=== PATIENT | male | born 1965 | race Hispanic/Latino ===

== ENCOUNTER 2016-10-08 09:48 | Inpatient (IN) | payer BC ==
[2016-10-08 09:59] VITALS: BMI 39.4
[2016-10-08] MEDS ORDERED: Iohexol 240 (50 ml) ONE (10:18)
[2016-10-08] MEDS: Sodium Chloride 0.9% 1,000 ML IV SCH (10:56)
--- NOTE | 2016-10-08 11:01 | ED PDOC ---
Arrival/HPI - General Historian: Patient - General Chief Complaint: Medical Clearance Time Seen by Provider: 10/08/16 10:10 - Critical Care Narrative Critical Care (Text): 10/08/16 10:31 51 year old male with recently diagnosed colon cancer was sent to [facility] by Dr. Fields for an abnormal PET scan. Patient is schedule to have colon resection surgery on with Dr. Collins. Patient's PET report states fluid collection in the sigmoid colon and phlegmonous or fistula tract suspicious for colovesical fistula. Patient has no current complains. He denies having abnormal bowel movements or blood per rectum. He further denies headache , fatigue, fever, chills, shortness of breath, nausea, vomiting, abdominal pain , or urinary symptoms. (Rula Bowles) Past Medical History - Provider Review Nursing Documentation Reviewed: Yes - Infectious Disease Hx of Infectious Diseases: None - Psychiatric Hx Substance Use: No - Surgical History Other/Comment: umbilical surgery - Anesthesia Hx Anesthesia: Yes Hx Anesthesia Reactions: No Family/Social History - Physician Review Nursing Documentation Reviewed: Yes Family/Social History: Unknown Family HX Smoking Status: Never Smoked Hx Alcohol Use: No Hx Substance Use: No Allergies/Home Meds Allergies/Adverse Reactions: Allergies tree nut Allergy (Verified 10/08/16 09:59) ANAPHYLAXIS Home Medications: Home Meds Medication Instructions Recorded Confirmed No Known Home Med 10/08/16 10/08/16 Review of Systems - Physician Review All systems were reviewed & negative as marked: Yes - Review of Systems Constitutional: Normal. absent: Fatigue, Fevers Eyes: Normal ENT: Normal. absent: Voice Changes Respiratory: Normal. absent: SOB, Cough Cardiovascular: Normal. absent: Chest Pain, Syncope Gastrointestinal: Normal. absent: Abdominal Pain, Stool Changes, Diarrhea, Nausea, Vomiting Musculoskeletal: Normal. absent: Back Pain Skin: Normal. absent: Rash, Skin Lesions Neurological: Normal. absent: Headache, Dizziness Endocrine: Normal. absent: Diaphoresis, Polyuria Hemo/Lymphatic: Normal Psychiatric: Normal. absent: Anxiety, Depression Physical Exam Vital Signs Reviewed: Yes Temperature: Afebrile Blood Pressure: Hypertensive Pulse: Regular Respiratory Rate: Normal Appearance: Positive for: Well-Appearing, Non-Toxic, Comfortable Pain Distress: None Mental Status: Positive for: Alert and Oriented X 3. No: Confused, Agitated - Systems Exam Head: Present: Atraumatic, Normocephalic Pupils: Present: PERRL Extroacular Muscles: Present: EOMI Conjunctiva: Present: Normal. No: Injected Ears: Present: Normal Mouth: Present: Moist Mucous Membranes Pharnyx: Present: Normal. No: ERYTHEMA Respiratory/Chest: Present: Clear to Auscultation, Good Air Exchange. No: Respiratory Distress, Accessory Muscle Use Cardiovascular: Present: Regular Rate and Rhythm, Normal S1, S2. No: Murmurs Abdomen: Present: Normal Bowel Sounds. No: Tenderness, Distention, Peritoneal Signs, Guarding, McBurney's Point Tender, Hernias Upper Extremity: Present: Normal Inspection, NORMAL PULSES Lower Extremity: Present: NORMAL PULSES, Neurovascularly Intact, Other ( multiple skin tags located at left inner thigh). No: Edema, Swelling Neurological: Present: GCS=15, CN II-XII Intact, Speech Normal Skin: Present: Warm, Dry, Normal Color. No: Rashes Psychiatric: Present: Alert, Oriented x 3, Normal Insight, Normal Concentration Medical Decision Making Re-evaluation Time: 13:30 Reassessment Condition: Unchanged ED Course and Treatment: 10/08/16 11:07 -CT abd and pelvis -EKG -IVF -CBC, CMP -PT/PTT -Type and screen DDx: colovesicular fistula, diverticulitis 10/08/16 12:10 residential leasing manager evaluated the patient. 10/08/16 13:25 ED attending discussed case with Dr. Marc Erickson, agreed with med/surg admission (Rula Bowles) Patient Seen With Resident: In agreement with resident note. Patient was seen and evaluated with resident, came up with plan and treatment together. (Massimo Cohen DO) - Lab Interpretations Lab Results: 10/08/16 10:41 10/08/16 10:41 Lab Results 10/08/16 11:53: Blood Type Confirm A NEGATIVE 10/08/16 11:23: Blood Type A NEGATIVE, Antibody Screen Positive, Antibody Identification Pending, BBK History Checked No verified bt 10/08/16 10:41: Sodium 140, Potassium 4.5, Chloride 105, Carbon Dioxide 23, Anion Gap 17, BUN 9, Creatinine 0.8, Est GFR ( Amer) > 60, Est GFR (Non- Af Amer) > 60, Random Glucose 96, Calcium 9.8, Total Bilirubin 0.7, AST 37, ALT 40, Alkaline Phosphatase 68, Total Protein 8.9 H, Albumin 4.6, Globulin 4.3, Albumin/Globulin Ratio 1.1 10/08/16 10:41: PT 11.1, INR 1.03, APTT 28.2 10/08/16 10:41: WBC 8.7, RBC 5.42, Hgb 13.1 L, Hct 40.8 L, MCV 75.3 L, MCH 24.2 L, MCHC 32.1, RDW 15.5 H, Plt Count 465 H, MPV 9.4, Gran % 60.6, Lymph % (Auto) 27.6, [place] % (Auto) 7.2 H, Eos % (Auto) 4.0, Baso % (Auto) 0.6, Gran # 5.28, Lymph # 2.4, [place] # 0.6, Eos # 0.4, Baso # 0.05 - RAD Interpretation Narrative RAD Interpretations (Text): 10/08/16 13:22 PROCEDURE: CT Abdomen and Pelvis with contrast HISTORY: h/o colon CA COMPARISON: None. TECHNIQUE: Contrast dose: 100 cc of Omni 350 Radiation dose: Total exam DLP = 1251 mGy-cm. This CT exam was performed using one or more of the following dose reduction techniques: Automated exposure control, adjustment of the mA and/or kV according to patient size, and/or use of iterative reconstruction technique. FINDINGS: LOWER THORAX: Unremarkable. LIVER: Unremarkable. No gross lesion or ductal dilatation. GALLBLADDER AND BILE DUCTS: Unremarkable. PANCREAS: Unremarkable. No gross lesion or ductal dilatation. SPLEEN: Unremarkable. ADRENALS: Unremarkable. No mass. KIDNEYS AND URETERS: Unremarkable. No hydronephrosis. No solid mass. VASCULATURE: Unremarkable. No aortic aneurysm. BOWEL: There is a mass in the sigmoid colon that infiltrates the adjacent mesenteric fat. There is also invasion of the bladder wall superiorly and on the left side. APPENDIX: Normal appendix. PERITONEUM: Unremarkable. No free fluid. No free air. LYMPH NODES: There is mild enlargement of mesenteric lymph nodes adjacent to the mass. BLADDER: Unremarkable. REPRODUCTIVE: Unremarkable. BONES: No acute fracture. OTHER FINDINGS: None. IMPRESSION: There is a mass in the sigmoid colon that infiltrates the adjacent mesenteric fat and invades the bladder. No evidence of metastatic disease to the liver. (Rula Bowles) Radiology Orders: 10/08/16 10:14 ABD PELVIS PO & IV CONTRAST [CT] Stat - EKG Interpretation EKG Interpretation (Text): 10/08/16 11:06 NSR at 87bpm, no acute ST changes, read by me (Rula Bowles) - Medication Orders Current Medication Orders: Sodium Chloride (Sodium Chloride 0.9%) 1,000 mls @ 100 mls/hr IV .Q10H [facility] Last Admin: 10/08/16 10:56 Dose: 100 mls/hr Discontinued Medications Iohexol (Omnipaque 240 (50 Ml)) Confirm Administered Dose 50 ml .ROUTE .STK-MED ONE Stop: 10/08/16 10:19 Iohexol (Omnipaque 350 100 Ml) Confirm Administered Dose 350 mg .ROUTE .STK-MED ONE Stop: 10/08/16 11:20 Disposition/Present on Arrival - Present on Arrival Any Indicators Present on Arrival: No History of DVT/PE: No History of Uncontrolled Diabetes: No Urinary Catheter: No History of Decub. Ulcer: No History Surgical Site Infection Following: None - Disposition Have Diagnosis and Disposition been Completed?: Yes Disposition Time: 13:42 Patient Plan: Admission (med/surg) - Disposition Diagnosis: Colon cancer Disposition: HOSPITALIZED Patient Problems: Current Active Problems Problem Status Onset Colon cancer Acute Condition: STABLE Referrals: Dre GOODEN,Romaine Cho MD [Primary Care Provider] - Follow up with primary
[2016-10-08 11:08] LABS: ALB/GLOB RATIO 1.1 (1.1-1.8); ALBUMIN 4.6 g/dL (3.0-4.8); ALT/SGPT 40 U/L (7-56); AST/SGOT 37 U/L (15-59); BLOOD UREA NITROGEN 9 mg/dL (7-21); CALCIUM 9.8 mg/dL (8.4-10.5); GFR AFRICAN-AMERICAN > 60; GFR NON-AFRICAN AMERICAN > 60
[2016-10-08 11:12] LABS: BASO # 0.05 K/mm3 (0.0-2.0); BASO % 0.6 % (0.0-3.0); EOS # 0.4 (0.0-0.7); GRAN # 5.28 (1.4-6.5); GRAN % 60.6 % (50.0-68.0); HEMOGLOBIN 13.1 gm/dL (14.0-18.0); LYMPH # 2.4 (1.2-3.4); LYMPH % 27.6 % (22.0-35.0); MEAN CELL VOLUME 75.3 fL (80.0-105.0); MEAN CORPUSCULAR HEMOGLOBIN 24.2 pg (25.0-35.0); MEAN CORPUSCULAR HGB CONC 32.1 g/dl (31.0-37.0); MEAN PLATELET VOLUME 9.4 fl (7.0-11.0); MONO # 0.6 (0.1-0.6); MONO % 7.2 % (1.0-6.0); PLATELET COUNT 465 10^3/uL (120.0-450.0); RBC 5.42 10^6/uL (3.5-6.1); RED CELL DISTRIBUTION WIDTH 15.5 % (11.5-14.5); WHITE BLOOD COUNT 8.7 10^3/ul (4.5-11.0)
[2016-10-08 11:17] LABS: INR 1.03 (0.93-1.08); PARTIAL THROMBOPLASTIN TIME 28.2 Seconds (23.7-30.8); PROTHROMBIN TIME 11.1 Seconds (9.9-11.8)
[2016-10-08] MEDS ORDERED: Iohexol 350 MG/100 ML VIAL ONE (11:19)
--- NOTE | 2016-10-08 12:19 | CP.PCM.CON ---
History of Present Illness - History of Present Illness History of Present Illness: General Surgery for Dr. Bernard CC: 51 M presents to the ED for abscess and fistula found on PET scan. HPI: 51 M presents to the ED for abscess and fistula. Surgery was consulted. Patient was seen at bedside. Patient was called by Dr. Brown because the PET scan from last week resulted showing pockets of fluid in posterior sigmoid region. Patient denies feeling any discomfort at the time. The patient was recently treated for UTI with Cipro for 7 days. Treatment ended 10/05/16. Patient is not experiencing dysuria at this time. Patient denies any changes in BM. Patient admits to eating soft foods due to recently diagnosed sigmoid cancer found on colonoscopy on 08/24/16. Patient denies F/C, N/V, C/D, melena, pneumaturia, hematuria, fecaluria. PMH: Sigmoid CA, HTN PSH: umbilical hernia repair 15 years ago FHx: none related to colon cancer. Social Hx: Never smoker, socially drinks EtOH (1-2 beers a weekend), denies illicit drugs. Medications: reviewed in chart. Allergies: NKDA Review of Systems - Review of Systems All systems: reviewed and no additional remarkable complaints except (As per HPI ) - Constitutional Constitutional: As Per HPI. absent: Fatigue, Weight Gain, Weight Loss - EENT Eyes: As Per HPI - Gastrointestinal Gastrointestinal: absent: Abdominal Pain, Change in Bowel Habits, Change in Stool Character, Constipation, Cramping, Diarrhea, Loose Stools, Melena - Genitourinary Genitourinary: absent: Dysuria, Pyuria, Nocturia, Urinary Incontinence, Urinary Frequency, Urinary Hesitance - Neurological Neurological: As Per HPI Past Patient History - Infectious Disease Hx of Infectious Diseases: None - Past Social History Smoking Status: Never Smoked - PSYCHIATRIC Hx Substance Use: No - SURGICAL HISTORY Other/Comment: umbilical surgery - ANESTHESIA Hx Anesthesia: Yes Hx Anesthesia Reactions: No Meds Allergies/Adverse Reactions: Allergies Allergy/AdvReac Type Severity Reaction Status Date / Time tree nut Allergy ANAPHYLAXIS Verified 10/08/16 09:59 - Medications Medications: Current Medications Sodium Chloride (Sodium Chloride 0.9%) 1,000 mls @ 100 mls/hr IV .Q10H [facility] Last Admin: 10/08/16 10:56 Dose: 100 mls/hr Physical Exam - Constitutional Appears: Non-toxic, No Acute Distress - Head Exam Head Exam: NORMAL INSPECTION - Eye Exam Eye Exam: EOMI, Normal appearance, PERRL - ENT Exam ENT Exam: Mucous Membranes Moist - Neck Exam Neck exam: Positive for: Full Rom - Respiratory Exam Respiratory Exam: NORMAL BREATHING PATTERN. absent: Accessory Muscle Use, Respiratory Distress - Cardiovascular Exam Cardiovascular Exam: REGULAR RHYTHM. absent: Bradycardia, Tachycardia - GI/Abdominal Exam GI & Abdominal Exam: Distended, Normal Bowel Sounds, Soft. absent: Firm, Guarding, Hernia, Organomegaly, Pulsatile Mass, Rebound, Rigid, Tenderness - Extremities Exam Extremities exam: Positive for: normal inspection. Negative for: pedal edema, tenderness - Neurological Exam Neurological exam: Alert, Oriented x3 - Psychiatric Exam Psychiatric exam: Normal Affect, Normal Mood - Skin Skin Exam: Dry, Intact, Normal Color, Warm Results - Vital Signs Recent Vital Signs: Last Vital Signs Temp 97.9 F 10/08/16 10:02 Pulse 89 10/08/16 11:43 Resp 18 10/08/16 11:43 BP 175/102 H 10/08/16 11:43 Pulse Ox 99 10/08/16 11:43 - Labs Result Diagrams: 10/08/16 10:41 10/08/16 10:41 Labs: Laboratory Results - last 24 hr 10/08/16 10/08/16 10/08/16 10:41 10:41 10:41 WBC 8.7 RBC 5.42 Hgb 13.1 L Hct 40.8 L MCV 75.3 L MCH 24.2 L MCHC 32.1 RDW 15.5 H Plt Count 465 H MPV 9.4 Gran % 60.6 Lymph % (Auto) 27.6 [place] % (Auto) 7.2 H Eos % (Auto) 4.0 Baso % (Auto) 0.6 Gran # 5.28 Lymph # 2.4 [place] # 0.6 Eos # 0.4 Baso # 0.05 PT 11.1 INR 1.03 APTT 28.2 Sodium 140 Potassium 4.5 Chloride 105 Carbon Dioxide 23 Anion Gap 17 BUN 9 Creatinine 0.8 Est GFR ( Amer) > 60 Est GFR (Non-Af Amer) > 60 Random Glucose 96 Calcium 9.8 Total Bilirubin 0.7 AST 37 ALT 40 Alkaline Phosphatase 68 Total Protein 8.9 H Albumin 4.6 Globulin 4.3 Albumin/Globulin Ratio 1.1 BBK History Checked 10/08/16 11:23 WBC RBC Hgb Hct MCV MCH MCHC RDW Plt Count MPV Gran % Lymph % (Auto) [place] % (Auto) Eos % (Auto) Baso % (Auto) Gran # Lymph # [place] # Eos # Baso # PT INR APTT Sodium Potassium Chloride Carbon Dioxide Anion Gap BUN Creatinine Est GFR ( Amer) Est GFR (Non-Af Amer) Random Glucose Calcium Total Bilirubin AST ALT Alkaline Phosphatase Total Protein Albumin Globulin Albumin/Globulin Ratio BBK History Checked No verified bt Assessment & Plan - Assessment and Plan (Free Text) Assessment: 51 M with sigmoid Ca Plan: Monitor overnight c/w current medical management f/u AM CBC f/u UA monitor BM
--- NOTE | 2016-10-08 13:07 | CT ---
PROCEDURE: CT Abdomen and Pelvis with contrast HISTORY: h/o colon CA COMPARISON: None. TECHNIQUE: Contrast dose: 100 cc of Omni 350 Radiation dose: Total exam DLP = 1251 mGy-cm. This CT exam was performed using one or more of the following dose reduction techniques: Automated exposure control, adjustment of the mA and/or kV according to patient size, and/or use of iterative reconstruction technique. FINDINGS: LOWER THORAX: Unremarkable. LIVER: Unremarkable. No gross lesion or ductal dilatation. GALLBLADDER AND BILE DUCTS: Unremarkable. PANCREAS: Unremarkable. No gross lesion or ductal dilatation. SPLEEN: Unremarkable. ADRENALS: Unremarkable. No mass. KIDNEYS AND URETERS: Unremarkable. No hydronephrosis. No solid mass. VASCULATURE: Unremarkable. No aortic aneurysm. BOWEL: There is a mass in the sigmoid colon that infiltrates the adjacent mesenteric fat. There is also invasion of the bladder wall superiorly and on the left side. APPENDIX: Normal appendix. PERITONEUM: Unremarkable. No free fluid. No free air. LYMPH NODES: There is mild enlargement of mesenteric lymph nodes adjacent to the mass. BLADDER: Unremarkable. REPRODUCTIVE: Unremarkable. BONES: No acute fracture. OTHER FINDINGS: None. IMPRESSION: There is a mass in the sigmoid colon that infiltrates the adjacent mesenteric fat and invades the bladder. No evidence of metastatic disease to the liver.
[2016-10-08] MEDS ORDERED: Piperacillin/Tazobact 3.375 gm 100 ML IVPB STA (14:16)
--- NOTE | 2016-10-08 15:41 | CARD ---
APPROVED REPORT EKG Measurement Heart [id number] <Conclusion> Normal sinus rhythm Normal ECG
[2016-10-08] MEDS ORDERED: Pneumococcal 23-Valent Vaccine IM ONE (15:46)
--- NOTE | 2016-10-08 22:51 | CP.PCM.CON ---
History of Present Illness - History of Present Illness History of Present Illness: Mr. Reyes is a 51 year old male recently diagnosed with colon cancer. Biopsy consistent with adenocarcinoma. He was evaluated in office prior to surgery. CT -PET scan done 3 days ago showed fluid collection with air bubbles posterior to colon concerning for bowel rupture. Fistulus tract between colon and bladder. Multiple PET positive nodes in abdomen and inguinal nodes. No mets in liver. He was advised to go to ER today. Denies abdominal pain. He also has iron deficiency anemia, s/p one dose of IV iron as out patient. Review of Systems - Constitutional Constitutional: As Per HPI - EENT Eyes: absent: As Per HPI, Blind Spots, Blurred Vision, Change in Vision, Decreased Night Vision, Diplopia, Discharge, Dry Eye, Exophthalmos, Floaters, Irritation, Itchy Eyes, Loss of Peripheral Vision, Pain, Photophobia, Requires Corrective Lenses, Sees Flashes, Spots in Vision, Tunnel Vision, Other Visual Disturbances, Loss of Vision, Other Ears: absent: As Per HPI, Decreased Hearing, Ear Discharge, Ear Pain, Tinnitus, Abnormal Hearing, Disequilibrium, Dizziness, Other Nose/Mouth/Throat: absent: As Per HPI, Epistaxis, Nasal Congestion, Nasal Discharge, Nasal Obstruction, Nasal Trauma, Nose Pain, Post Nasal Drip, Sinus Pain, Sinus Pressure, Bleeding Gums, Change in Voice, Dental Pain, Dry Mouth, Dysphagia, Halitosis, Hoarsness, Lip Swelling, Mouth Lesions, Mouth Pain, Odynophagia, Sore Throat, Throat Swelling, Tongue Swelling, Facial Pain, Neck Pain, Neck Mass, Other - Cardiovascular Cardiovascular: absent: As Per HPI, Acrocyanosis, Chest Pain, Chest Pain at Rest , Chest Pain with Activity, Claudication, Diaphoresis, Dyspnea, Dyspnea on Exertion, Edema, Irregular Heart Rhythm, Pain Radiating to Arm/Neck/Jaw, Leg Edema, Leg Ulcers, Lightheadedness, Orthopnea, Palpitations, Paroxysmal Nocturnal Dyspnea, Pedal Edema, Radiating Pain, Rapid Heart Rate, Slow Heart Rate, Syncope, Other - Respiratory Respiratory: absent: As Per HPI, Cough, Dyspnea, Hemoptysis, Dyspnea on Exertion , Wheezing, Snoring, Stridor, Pain on Inspiration, Chest Congestion, Excessive Mucous Production, Change in Mucous Color, Pain with Coughing, Other - Gastrointestinal Gastrointestinal: As Per HPI - Genitourinary Genitourinary: As Per HPI - Integumentary Integumentary: absent: As Per HPI, Acne, Alopecia, Bleeding Lesions, Change in Hair, Change in Nails, Change in Pigmentation, Changing Lesions, Dry Skin, Erythema, Furuncle, Hirsutism, Lesions, New Lesions, Non-Healing Lesions, Photosensitivity, Pruritus, Rash, Skin Pain, Skin Ulcer, Sores, Striae, Swelling , Unusual Bruising, Wounds, Jaundice, Other - Neurological Neurological: absent: As Per HPI, Abnormal Gait, Abnormal Hearing, Abnormal Movements, Abnormal Speech, Behavioral Changes, Burning Sensations, Confusion, Convulsions, Disequilibrium, Dizziness, Numbness, Focal Weakness, Frequent Falls , Headaches, Lack of Coordination, Loss of Vision, Memory Loss, Paresthesias, Radicular Pain, Restless Legs, Sensory Deficit, Syncope, Tingling, Tremor, Vertigo, Weakness, Other Visual Disturbances, Other - Psychiatric Psychiatric: absent: As Per HPI, Abnormal Sleep Pattern, Anhedonia, Anxiety, Auditory Hallucinations, Behavioral Changes, Change in Appetite, Change in Libido, Confusion, Depression, Difficulty Concentrating, Hallucinations, Homicidal Ideation, Hopelessness, Irritability, Memory Loss, Mood Swings, Panic Attacks, Paranoia, Suicidal Ideation, Visual Hallucinations, Tactile Hallucinations, Other - Endocrine Endocrine: absent: As Per HPI, Change in Body Appearance, Change in Libido, Cold Intolorance, Deepening of Voice, Excessive Sweating, Fatigue, Flushing, Heat Intolorance, Increase in Ring/Shoe/Hat Size, Palpitations, Polydipsia, Polyphagia, Polyuria, Other - Hematologic/Lymphatic Hematologic: As Per HPI Past Patient History - Infectious Disease Hx of Infectious Diseases: None - Past Medical History & Family History Past Medical History?: Yes Past Family History: Reviewed and not pertinent - Past Social History Smoking Status: Never Smoked - MUSCULOSKELETAL/RHEUMATOLOGICAL Hx Falls: No - GASTROINTESTINAL Other/Comment: pet scan 10/04/16+ colon tumor - GENITOURINARY/GYNECOLOGICAL Hx Urinary Tract Infection: Yes (was on cipro 7 days finished 10/05/16) - PSYCHIATRIC Hx Substance Use: No - SURGICAL HISTORY Other/Comment: umbilical hernia sx surgery 15 yrs ago - ANESTHESIA Hx Anesthesia: Yes Hx Anesthesia Reactions: No Meds Allergies/Adverse Reactions: Allergies Allergy/AdvReac Type Severity Reaction Status Date / Time tree nut Allergy ANAPHYLAXIS Verified 10/08/16 09:59 - Medications Medications: Current Medications Erythromycin (Erythromycin) 500 mg PO Q6 [facility] PRN Reason: Protocol Stop: 10/11/16 00:00 Sodium Chloride (Sodium Chloride 0.9%) 1,000 mls @ 100 mls/hr IV .Q10H [facility] Last Admin: 10/08/16 10:56 Dose: 100 mls/hr Neomycin Sulfate (Neomycin Tab) 1,000 mg PO Q4 [facility] Stop: 10/11/16 00:00 Polyethylene Glycol/Electrolytes (Golytely) 4,000 ml PO ONCE ONE Stop: 10/09/16 13:01 Physical Exam - Constitutional Appears: Well, Non-toxic - Head Exam Head Exam: ATRAUMATIC, NORMAL INSPECTION, NORMOCEPHALIC - Eye Exam Eye Exam: Normal appearance Pupil Exam: NORMAL ACCOMODATION - ENT Exam ENT Exam: Mucous Membranes Moist, Normal Exam - Neck Exam Neck exam: Positive for: Normal Inspection - Respiratory Exam Respiratory Exam: Clear to Auscultation Bilateral, NORMAL BREATHING PATTERN - Cardiovascular Exam Cardiovascular Exam: REGULAR RHYTHM, +S1, +S2 - GI/Abdominal Exam GI & Abdominal Exam: Normal Bowel Sounds, Soft - Extremities Exam Extremities exam: Positive for: normal inspection - Back Exam Back exam: NORMAL INSPECTION - Neurological Exam Neurological exam: Alert, CN II-XII Intact, Oriented x3 - Psychiatric Exam Psychiatric exam: Normal Affect, Normal Mood - Skin Skin Exam: Dry, Normal Color, Warm Results - Vital Signs Recent Vital Signs: Last Vital Signs Temp 97.9 F 10/08/16 16:00 Pulse 80 10/08/16 20:00 Resp 18 10/08/16 20:00 BP 141/83 10/08/16 20:00 Pulse Ox 98 10/08/16 20:00 - Labs Result Diagrams: 10/08/16 10:41 10/08/16 10:41 Assessment & Plan - Assessment and Plan (Free Text) Assessment: 1. Colon cancer 2.Fluid collection behind colon, fistula colo-vesical 3. iron deficiency anemia 4. diverticulitis Plan : Colon cancer - T4, lesion, nodes positive on PET scan. No distant mets on PET scan. Discussed with Dr. Bernard. IV antibiotics. Surgery will be planned for Currently, CT abdomen does not show bowel perforation. Urology consult DR. Kilgore. ID consult Dr. Rivera. IV iron 200 mg IV today. Thank you Dr. Waters for allowing us to participate in his care. Discussed with the patient and bedside. - Date & Time Date: 10/08/16 Time: 18:00
[2016-10-09] MEDS: Sodium Chloride 0.9% 1,000 ML IV SCH ×3 (00:30→22:30)
[2016-10-09 07:19] LABS: ALB/GLOB RATIO 1.1 (1.1-1.8); ALBUMIN 4.1 g/dL (3.0-4.8); ALT/SGPT 33 U/L (7-56); AST/SGOT 23 U/L (15-59); BLOOD UREA NITROGEN 8 mg/dL (7-21); GFR AFRICAN-AMERICAN > 60; GFR NON-AFRICAN AMERICAN > 60
[2016-10-09 07:31] LABS: BASO # 0.05 K/mm3 (0.0-2.0); BASO % 0.6 % (0.0-3.0); EOS # 0.3 (0.0-0.7); GRAN # 5.57 (1.4-6.5); GRAN % 62.5 % (50.0-68.0); LYMPH # 2.4 (1.2-3.4); LYMPH % 27.4 % (22.0-35.0); MEAN CELL VOLUME 75.1 fL (80.0-105.0); MEAN CORPUSCULAR HEMOGLOBIN 23.9 pg (25.0-35.0); MEAN CORPUSCULAR HGB CONC 31.8 g/dl (31.0-37.0); MEAN PLATELET VOLUME 9.1 fl (7.0-11.0); MONO # 0.6 (0.1-0.6); MONO % 6.5 % (1.0-6.0); PLATELET COUNT 406 10^3/uL (120.0-450.0); RBC 5.02 10^6/uL (3.5-6.1); RED CELL DISTRIBUTION WIDTH 15.5 % (11.5-14.5); WHITE BLOOD COUNT 8.9 10^3/ul (4.5-11.0)
--- NOTE | 2016-10-09 08:36 | CP.PCM.PN ---
Subjective - Date & Time of Evaluation Date of Evaluation: 10/09/16 Time of Evaluation: 07:33 - Subjective Subjective: PT S&E at beside. NAEON. No signs of distress. No F/C, N/V, C/D. No BM overnight. Objective - Vital Signs/Intake and Output Vital Signs (last 24 hours): Temp Pulse Resp BP Pulse Ox 97.9 F 80 18 141/83 98 10/08/16 16:00 10/08/16 20:00 10/08/16 20:00 10/08/16 20:00 10/08/16 20:00 - Medications Medications: Current Medications Erythromycin (Erythromycin) 500 mg PO Q6 [facility] PRN Reason: Protocol Stop: 10/11/16 00:00 Sodium Chloride (Sodium Chloride 0.9%) 1,000 mls @ 100 mls/hr IV .Q10H [facility] Last Admin: 10/09/16 00:30 Dose: 100 mls/hr Neomycin Sulfate (Neomycin Tab) 1,000 mg PO Q4 [facility] Stop: 10/11/16 00:00 Polyethylene Glycol/Electrolytes (Golytely) 4,000 ml PO ONCE ONE Stop: 10/09/16 13:01 - Labs Labs: 10/09/16 06:30 10/09/16 06:30 PT 11.1 Seconds (9.9-11.8) 10/08/16 10:41 INR 1.03 (0.93-1.08) 10/08/16 10:41 APTT 28.2 Seconds (23.7-30.8) 10/08/16 10:41 - Constitutional Appears: Well - Head Exam Head Exam: NORMAL INSPECTION - Eye Exam Eye Exam: EOMI, Normal appearance - Neck Exam Neck Exam: Full ROM - Respiratory Exam Respiratory Exam: NORMAL BREATHING PATTERN. absent: Wheezes, Respiratory Distress - GI/Abdominal Exam GI & Abdominal Exam: Distended, Soft. absent: Firm, Guarding, Rigid, Tenderness - Extremities Exam Extremities Exam: Normal Inspection - Neurological Exam Neurological Exam: Alert, Awake, Oriented x3 - Psychiatric Exam Psychiatric exam: Normal Affect, Normal Mood Assessment and Plan - Assessment and Plan (Free Text) Assessment: 51 M male presents with posterior sigmoidal abscess. Plan: start abx start bowel prep f/u AM CBC monitor BM Scheduled for surgery on
--- NOTE | 2016-10-09 11:36 | CP.PCM.CON ---
History of Present Illness - History of Present Illness History of Present Illness: DOING WELL NO FEVER NO ABD PAIN NO CHILLS NO GI NO SYMPTOMS Review of Systems - Review of Systems Systems not reviewed;Unavailable: Acuity of Condition, Unstable Vital Signs, Respiratory Distress, Dementia, Altered Mental Status, Intoxicated, Uncooperative, Psychotic, Intubated, Language Barrier, Other - Constitutional Constitutional: absent: As Per HPI, Anorexia, Chills, Daytime Sleepiness, Excessive Sweating, Fatigue, Fever, Frequent Falls, Headache, Increased Appetite , Lethargy, Malaise, Night Sweats, Snoring, Sleep Apnea, Weight Gain, Weight Loss, Weakness, Other - EENT Eyes: absent: As Per HPI, Blind Spots, Blurred Vision, Change in Vision, Decreased Night Vision, Diplopia, Discharge, Dry Eye, Exophthalmos, Floaters, Irritation, Itchy Eyes, Loss of Peripheral Vision, Pain, Photophobia, Requires Corrective Lenses, Sees Flashes, Spots in Vision, Tunnel Vision, Other Visual Disturbances, Loss of Vision, Other Ears: absent: As Per HPI, Decreased Hearing, Ear Discharge, Ear Pain, Tinnitus, Abnormal Hearing, Disequilibrium, Dizziness, Other Nose/Mouth/Throat: absent: As Per HPI, Epistaxis, Nasal Congestion, Nasal Discharge, Nasal Obstruction, Nasal Trauma, Nose Pain, Post Nasal Drip, Sinus Pain, Sinus Pressure, Bleeding Gums, Change in Voice, Dental Pain, Dry Mouth, Dysphagia, Halitosis, Hoarsness, Lip Swelling, Mouth Lesions, Mouth Pain, Odynophagia, Sore Throat, Throat Swelling, Tongue Swelling, Facial Pain, Neck Pain, Neck Mass, Other - Cardiovascular Cardiovascular: absent: As Per HPI, Acrocyanosis, Chest Pain, Chest Pain at Rest , Chest Pain with Activity, Claudication, Diaphoresis, Dyspnea, Dyspnea on Exertion, Edema, Irregular Heart Rhythm, Pain Radiating to Arm/Neck/Jaw, Leg Edema, Leg Ulcers, Lightheadedness, Orthopnea, Palpitations, Paroxysmal Nocturnal Dyspnea, Pedal Edema, Radiating Pain, Rapid Heart Rate, Slow Heart Rate, Syncope, Other - Respiratory Respiratory: absent: As Per HPI, Cough, Dyspnea, Hemoptysis, Dyspnea on Exertion , Wheezing, Snoring, Stridor, Pain on Inspiration, Chest Congestion, Excessive Mucous Production, Change in Mucous Color, Pain with Coughing, Other - Gastrointestinal Gastrointestinal: absent: As Per HPI, Abdominal Pain, Belching, Bloating, Change in Bowel Habits, Change in Stool Character, Coffee Ground Emesis, Constipation, Cramping, Diarrhea, Dyspepsia, Dysphagia, Early Satiety, Excessive Flatus, Fecal Incontinence, Heartburn, Hematemesis, Hematochezia, Loose Stools, Melena, Nausea, Odynophagia, Temesmus, Vomiting, Other - Genitourinary Genitourinary: absent: As Per HPI, Change in Urinary Stream, Difficulty Urinating, Dysuria, Flank Pain, Hematuria, Pyuria, Nocturia, Urinary Incontinence, Urinary Frequency, Urinary Hesitance, Urinary Urgency, Voiding Freq/Small Amts, Freq UTI, Hx Renal/Bladder Calculi, Hx /Renal Surgery, Bladder Distension, Other - Reproductive: Male Reproductive:Male: As Per HPI, Prepubesant, Dyspareunia, Genital Lesions, Genital Pruritis, Pelvic Pain, Sexual Dysfunction, Penile Discharge, Genital Odor, Impotence, On ED Medications, Penile Implant, Other - Musculoskeletal Musculoskeletal: absent: As Per HPI, Abnormal Gait, Arthralgias, Atrophy, Back Pain, Deformity, Joint Swelling, Limited Range of Motion, Loss of Height, Muscle Cramps, Muscle Weakness, Myalgias, Neck Pain, Numbness, Radiating Pain into Limb, Stiffness, Tingling, Other - Integumentary Integumentary: absent: As Per HPI, Acne, Alopecia, Bleeding Lesions, Change in Hair, Change in Nails, Change in Pigmentation, Changing Lesions, Dry Skin, Erythema, Furuncle, Hirsutism, Lesions, New Lesions, Non-Healing Lesions, Photosensitivity, Pruritus, Rash, Skin Pain, Skin Ulcer, Sores, Striae, Swelling , Unusual Bruising, Wounds, Jaundice, Other - Neurological Neurological: absent: As Per HPI, Abnormal Gait, Abnormal Hearing, Abnormal Movements, Abnormal Speech, Behavioral Changes, Burning Sensations, Confusion, Convulsions, Disequilibrium, Dizziness, Numbness, Focal Weakness, Frequent Falls , Headaches, Lack of Coordination, Loss of Vision, Memory Loss, Paresthesias, Radicular Pain, Restless Legs, Sensory Deficit, Syncope, Tingling, Tremor, Vertigo, Weakness, Other Visual Disturbances, Other - Psychiatric Psychiatric: absent: As Per HPI, Abnormal Sleep Pattern, Anhedonia, Anxiety, Auditory Hallucinations, Behavioral Changes, Change in Appetite, Change in Libido, Confusion, Depression, Difficulty Concentrating, Hallucinations, Homicidal Ideation, Hopelessness, Irritability, Memory Loss, Mood Swings, Panic Attacks, Paranoia, Suicidal Ideation, Visual Hallucinations, Tactile Hallucinations, Other Past Patient History - Infectious Disease Hx of Infectious Diseases: None - Past Medical History & Family History Past Medical History?: Yes Past Family History: Reviewed and not pertinent - Past Social History Smoking Status: Never Smoked - MUSCULOSKELETAL/RHEUMATOLOGICAL Hx Falls: No - GASTROINTESTINAL Other/Comment: pet scan 10/04/16+ colon tumor - GENITOURINARY/GYNECOLOGICAL Hx Urinary Tract Infection: Yes (was on cipro 7 days finished 10/05/16) - PSYCHIATRIC Hx Substance Use: No - SURGICAL HISTORY Other/Comment: umbilical hernia sx surgery 15 yrs ago - ANESTHESIA Hx Anesthesia: Yes Hx Anesthesia Reactions: No Meds Allergies/Adverse Reactions: Allergies Allergy/AdvReac Type Severity Reaction Status Date / Time tree nut Allergy ANAPHYLAXIS Verified 10/08/16 09:59 - Medications Medications: Current Medications Erythromycin (Erythromycin) 500 mg PO Q6 [facility] PRN Reason: Protocol Stop: 10/11/16 00:00 Sodium Chloride (Sodium Chloride 0.9%) 1,000 mls @ 100 mls/hr IV .Q10H [facility] Last Admin: 10/09/16 00:30 Dose: 100 mls/hr Neomycin Sulfate (Neomycin Tab) 1,000 mg PO Q4 [facility] Stop: 10/11/16 00:00 Polyethylene Glycol/Electrolytes (Golytely) 4,000 ml PO ONCE ONE Stop: 10/09/16 13:01 Physical Exam - Constitutional Appears: Well - Head Exam Head Exam: ATRAUMATIC, NORMAL INSPECTION, NORMOCEPHALIC - Eye Exam Eye Exam: EOMI, Normal appearance, PERRL Pupil Exam: NORMAL ACCOMODATION, PERRL - ENT Exam ENT Exam: Mucous Membranes Moist, Normal Exam - Neck Exam Neck exam: Positive for: Normal Inspection - Respiratory Exam Respiratory Exam: Clear to Auscultation Bilateral, NORMAL BREATHING PATTERN - Cardiovascular Exam Cardiovascular Exam: REGULAR RHYTHM - GI/Abdominal Exam GI & Abdominal Exam: Normal Bowel Sounds, Soft. absent: Tenderness - Rectal Exam Rectal Exam: NORMAL INSPECTION - Exam Exam: Circumcision, NORMAL INSPECTION External exam: NORMAL EXTERNAL EXAM Speculum exam: NORMAL SPECULUM EXAM Bimanual exam: NORMAL BIMANUAL EXAM - Extremities Exam Extremities exam: Positive for: normal inspection - Back Exam Back exam: NORMAL INSPECTION - Neurological Exam Neurological exam: Alert, CN II-XII Intact, Normal Gait, Oriented x3, Reflexes Normal - Psychiatric Exam Psychiatric exam: Normal Affect, Normal Mood - Skin Skin Exam: Dry, Intact, Normal Color, Warm Results - Vital Signs Recent Vital Signs: Last Vital Signs Temp 98.0 F 10/09/16 06:00 Pulse 79 10/09/16 06:00 Resp 20 10/09/16 06:00 BP 140/92 H 10/09/16 06:00 Pulse Ox 95 10/09/16 06:00 - Labs Result Diagrams: 10/09/16 06:30 10/09/16 06:30 Labs: Laboratory Results - last 24 hr 10/09/16 10/09/16 06:30 06:30 WBC 8.9 RBC 5.02 Hgb 12.0 L Hct 37.7 L MCV 75.1 L MCH 23.9 L MCHC 31.8 RDW 15.5 H Plt Count 406 MPV 9.1 Gran % 62.5 Lymph % (Auto) 27.4 [place] % (Auto) 6.5 H Eos % (Auto) 3.0 Baso % (Auto) 0.6 Gran # 5.57 Lymph # 2.4 [place] # 0.6 Eos # 0.3 Baso # 0.05 Sodium 139 Potassium 4.1 Chloride 104 Carbon Dioxide 25 Anion Gap 14 BUN 8 Creatinine 0.8 Est GFR ( Amer) > 60 Est GFR (Non-Af Amer) > 60 Random Glucose 91 Calcium 9.0 Total Bilirubin 0.8 AST 23 ALT 33 Alkaline Phosphatase 64 Total Protein 8.0 Albumin 4.1 Globulin 3.9 Albumin/Globulin Ratio 1.1 Assessment & Plan (1) Colon cancer Status: Acute (2) Recto-vesical fistula Status: Acute (3) Infected fluid collection with fistula Status: Acute - Assessment and Plan (Free Text) Plan: [facility] CARRILLO CULTURES FOR OR THIS WEEK - Date & Time Date: 10/09/16 Time: 10:00
[2016-10-09] MEDS ORDERED: Piperacillin/Tazobact 3.375 gm 100 ML IVPB SCH (12:00)
[2016-10-09] MEDS: Piperacillin/Tazobact 3.375 gm 100 ML IVPB SCH ×2 (12:33→17:03)
[2016-10-09] MEDS ORDERED: Peg-Electrolyte Oral Soln 4L (Golytely) PO ONE (13:00)
--- NOTE | 2016-10-09 19:13 | CP.PCM.HP ---
History of Present Illness - History of Present Illness History of Present Illness: History Of Present Illness: The patient is a 51 yo man with newly diagnosed adenocarcinoma of the sigmoid colon who presented to [facility] at the advise of his senior etl developer/ oncologist (Dr. Fields) after undergoing a PET scan as part of his staging workup which demonstrated a fluid collection and free air at the site of the sigmoid lesion as well as a colovesical fistula. The patient denies any complaints such as abdominal pain, distension, nausea, vomiting, dysuria, hematuria, pneumaturia, fevers, chills or flank pain. He is tolerating oral intake, moving his bowels and largely offers no complaints. Upon arrival to the ED he was noted to be afebrile and hemodynamically stable. Physical examination disclosed no abnormalities. A repeat CT of the abdomen and pelvis with contrast demonstrated the sigmoid lesion but no evidence of perforation. The patient was subsequently admitted for surgical evaluation given the colovesical fistula and for continued management of his underlying adenocarcinoma. Past Medical History: As per HPI Past Surgical History: Umbilical hernia repair Medications: None Allergies: NKDA Family History: No history of GI malignancy Social History: The patient is a never smoker who reports social EtOH use and denies illicit drug abuse Review Of Systems: A 14 point review of systems is negative except as per HPI Physical Examination: VS: T 98.6, P 85, BP 144/83, RR 16, O2 100% on RA Gen: well-developed, well nourished man in NAD HEENT: NC/AT, PERRL, EOMI, no scleral icterus, no conjunctival pallor Neck: supple with full ROM, no JVD, no lymphadenopathy, no bruits Lungs: CTA CV: RRR, normal S1, S2, no m/r/g Abd: obese, NABS, soft, NT, ND, no rigidity, no tympany Ext: no c/c/e Neuro: AAOx3, no focal motor deficits Laboratory Data: CBC reviewed and notable for Hb of 12, CMP reviewed and unremarkable Imaging Studies: CT of the abdomen and pelvis with contrast demonstrates mass to the sigmoid colon with no definitive evidence of perforation Assessment: The patient is a 51 yo man with newly diagnosed adenocarcinoma of the sigmoid colon (Stage III as per recent PET scan) who was admitted for management of suspected bowel perforation and colovesical fistula Plan: 1. Stage III adenocarcinoma of the sigmoid colon. Input from Dr. Fields noted and appreciated. Input from Dr. Bernard and the surgical team noted. Patient scheduled for OR on (10/11/16). Patient started on empiric abx consisting of Zosyn as per Dr. Parker given concern for possible bowel perforation 2. Colovesical fistula. Dr. Stark of urology has been consulted for further evaluation and recommendations. 3. HTN, diet-controlled. Will monitor hemodynamics and initiate antihypertensive therapy as needed. 4. Prophylaxis. GI prophylaxis not indicated as the patient is eating. DVT prophylaxis not indicated as the patient is ambulatory. Code Status: Full Code Present on Admission - Present on Admission Any Indicators Present on Admission: No History of DVT/PE: No History of Uncontrolled Diabetes: No Past Patient History - Infectious Disease Hx of Infectious Diseases: None - Past Medical History & Family History Past Medical History?: Yes Past Family History: Reviewed and not pertinent - Past Social History Smoking Status: Never Smoked - MUSCULOSKELETAL/RHEUMATOLOGICAL Hx Falls: No - GASTROINTESTINAL Other/Comment: pet scan 10/04/16+ colon tumor - GENITOURINARY/GYNECOLOGICAL Hx Urinary Tract Infection: Yes (was on cipro 7 days finished 10/05/16) - PSYCHIATRIC Hx Substance Use: No - SURGICAL HISTORY Other/Comment: umbilical hernia sx surgery 15 yrs ago - ANESTHESIA Hx Anesthesia: Yes Hx Anesthesia Reactions: No Meds Allergies/Adverse Reactions: Allergies Allergy/AdvReac Type Severity Reaction Status Date / Time tree nut Allergy ANAPHYLAXIS Verified 10/08/16 09:59 Results - Vital Signs Recent Vital Signs: Last Vital Signs Temp 98.6 F 10/09/16 16:00 Pulse 85 10/09/16 16:00 Resp 20 10/09/16 16:00 BP 158/106 H 10/09/16 16:00 Pulse Ox 96 10/09/16 16:00 - Labs Result Diagrams: 10/09/16 06:30 10/09/16 06:30
[2016-10-10] MEDS: Piperacillin/Tazobact 3.375 gm 100 ML IVPB SCH ×4 (05:15→18:08)
--- NOTE | 2016-10-10 07:30 | CP.PCM.PN ---
Subjective - Date & Time of Evaluation Date of Evaluation: 10/10/16 Time of Evaluation: 07:27 - Subjective Subjective: PT S&E at bedside. Cheerful disposition, NAEON. Patient started Golytely yesterday. Patient states he took abx this morning. Admits to multiple episodes diarrhea. Denies melena, hematochezia, f/c/, n/v/, constipation, and abdominal pain. Patient is tolerating CLD. Objective - Vital Signs/Intake and Output Vital Signs (last 24 hours): Temp Pulse Resp BP Pulse Ox 98.6 F 85 20 158/106 H 96 10/09/16 16:00 10/09/16 16:00 10/09/16 16:00 10/09/16 16:00 10/09/16 16:00 Intake and Output: 10/10/16 10/10/16 06:59 18:59 Intake Total 1980 Balance 1979 - Medications Medications: Current Medications Erythromycin (Erythromycin) 500 mg PO Q6 [facility] PRN Reason: Protocol Stop: 10/11/16 00:00 Last Admin: 10/10/16 05:14 Dose: 500 mg Sodium Chloride (Sodium Chloride 0.9%) 1,000 mls @ 100 mls/hr IV .Q10H [facility] Last Admin: 10/09/16 22:30 Dose: 100 mls/hr Piperacillin Sod/Tazobactam Sod (Zosyn 3.375 In Ns 100ml) 100 mls @ 200 mls/hr IVPB Q6 [facility] PRN Reason: Protocol Stop: 10/18/16 12:01 Last Admin: 10/10/16 05:15 Dose: 200 mls/hr Neomycin Sulfate (Neomycin Tab) 1,000 mg PO Q4 [facility] Stop: 10/11/16 00:00 Last Admin: 10/10/16 05:14 Dose: 1,000 mg - Labs Labs: PT 11.1 Seconds (9.9-11.8) 10/08/16 10:41 INR 1.03 (0.93-1.08) 10/08/16 10:41 APTT 28.2 Seconds (23.7-30.8) 10/08/16 10:41 - Head Exam Head Exam: NORMAL INSPECTION - Eye Exam Eye Exam: Normal appearance - Neck Exam Neck Exam: Full ROM - Respiratory Exam Respiratory Exam: NORMAL BREATHING PATTERN. absent: Accessory Muscle Use, Wheezes, Respiratory Distress, Stridor - GI/Abdominal Exam GI & Abdominal Exam: Distended, Soft, Normal Bowel Sounds. absent: Firm, Guarding, Rigid, Tenderness - Neurological Exam Neurological Exam: Alert, Awake, Normal Gait, Oriented x3 - Psychiatric Exam Psychiatric exam: Normal Affect, Normal Mood - Skin Skin Exam: Dry, Intact, Normal Color, Warm Assessment and Plan - Assessment and Plan (Free Text) Assessment: 51 M with sigmoidal abscess with history of sigmoid adenocarcinoma. Plan: c/w CLD. NPO after midnight c/w current abx treatment c/w erythromycin and neomycin bowel prep surgery scheduled for tomorrow, 10/11/16 f/u with urology
[2016-10-10 07:44] LABS: BASO # 0.04 K/mm3 (0.0-2.0); BASO % 0.4 % (0.0-3.0); EOS # 0.3 (0.0-0.7); EOS % 3.6 % (1.5-5.0); GRAN % 66.3 % (50.0-68.0); HEMOGLOBIN 12.9 gm/dL (14.0-18.0); LYMPH % 21.5 % (22.0-35.0); MEAN CELL VOLUME 75.7 fL (80.0-105.0); MEAN CORPUSCULAR HEMOGLOBIN 23.8 pg (25.0-35.0); MEAN CORPUSCULAR HGB CONC 31.4 g/dl (31.0-37.0); MEAN PLATELET VOLUME 9.2 fl (7.0-11.0); MONO # 0.8 (0.1-0.6); MONO % 8.2 % (1.0-6.0); PLATELET COUNT 435 10^3/uL (120.0-450.0); RBC 5.43 10^6/uL (3.5-6.1); RED CELL DISTRIBUTION WIDTH 15.5 % (11.5-14.5); WHITE BLOOD COUNT 9.5 10^3/ul (4.5-11.0)
[2016-10-10 07:56] LABS: ALB/GLOB RATIO 1.1 (1.1-1.8); ALBUMIN 4.4 g/dL (3.0-4.8); ALT/SGPT 23 U/L (7-56); AST/SGOT 26 U/L (15-59); BLOOD UREA NITROGEN 5 mg/dL (7-21); CALCIUM 9.5 mg/dL (8.4-10.5); GFR AFRICAN-AMERICAN > 60; GFR NON-AFRICAN AMERICAN > 60
--- NOTE | 2016-10-10 08:29 | CP.PCM.PN ---
Subjective - Date & Time of Evaluation Date of Evaluation: 10/10/16 Time of Evaluation: 08:00 - Subjective Subjective: Subjective: Patient seen and examined at bedside on the general medical roland. No acute events overnight. Patient does report multiple BM's with bowel prep in anticipation of OR tomorrow for resection of sigmoid colon mass. Otherwise no complaints offered. Objective: T: 97.7, P 82, BP 150/90, RR 16, O2 98% on RA Gen: NAD HEENT: PERRL, EOMI, no icterus Neck: no JVD Lungs: CTA CV: RRR, no m/r/g Abd: obese, NABS, soft, NT, ND Ext: no c/c/e Neuro: AAOx3, no deficits Laboratory Data: CBC and CMP reviewed and unremarkable Assessment: The patient is a 51 yo man with newly diagnosed adenocarcinoma of the sigmoid colon who was admitted for surgical resection after undergoing a PET scan which demonstrated possible bowel perforation and presence of colovesical fistula Plan: 1. Adenocarcinoma of the sigmoid colon, Stage III. Input from Dr. Fields of heme/ onc noted. Input from Dr. Bernard and the surgical team noted and patient scheduled for OR tomorrow (10/11/16) 2. Col[address] fistula. Dr. Stark of urology consulted for further evaluation in anticipation of patient's OR procedure 3. HTN, diet-controlled. BP readings are borderline, will continue to monitor and initiate antihypertensives as needed 4. Prophylaxis. GI prophylaxis not indicated as patient is eating. DVT prophylaxis not indicated as patient is ambulatory Code Status: Full Code Objective - Vital Signs/Intake and Output Vital Signs (last 24 hours): Temp Pulse Resp BP Pulse Ox 98.6 F 85 20 158/106 H 96 10/09/16 16:00 10/09/16 16:00 10/09/16 16:00 10/09/16 16:00 10/09/16 16:00 Intake and Output: 10/10/16 10/10/16 06:59 18:59 Intake Total 1979 Output Total 0 Balance 1979 0 - Medications Medications: Current Medications Erythromycin (Erythromycin) 500 mg PO Q6 [facility] PRN Reason: Protocol Stop: 10/11/16 00:00 Last Admin: 10/10/16 05:14 Dose: 500 mg Sodium Chloride (Sodium Chloride 0.9%) 1,000 mls @ 100 mls/hr IV .Q10H [facility] Last Admin: 10/09/16 22:30 Dose: 100 mls/hr Piperacillin Sod/Tazobactam Sod (Zosyn 3.375 In Ns 100ml) 100 mls @ 200 mls/hr IVPB Q6 [facility] PRN Reason: Protocol Stop: 10/18/16 12:01 Last Admin: 10/10/16 05:15 Dose: 200 mls/hr Neomycin Sulfate (Neomycin Tab) 1,000 mg PO Q4 [facility] Stop: 10/11/16 00:00 Last Admin: 10/10/16 05:14 Dose: 1,000 mg - Labs Labs: 10/10/16 07:00 10/10/16 07:00 PT 11.1 Seconds (9.9-11.8) 10/08/16 10:41 INR 1.03 (0.93-1.08) 10/08/16 10:41 APTT 28.2 Seconds (23.7-30.8) 10/08/16 10:41
--- NOTE | 2016-10-10 11:47 | CP.PCM.PN ---
Subjective - Date & Time of Evaluation Date of Evaluation: 10/10/16 Time of Evaluation: 11:15 - Subjective Subjective: Comfortable, not in distress, afebrile, no abdominal pain, no nausea. Planned for procedure tomorrow. Objective - Vital Signs/Intake and Output Vital Signs (last 24 hours): Temp Pulse Resp BP Pulse Ox 98.0 F 78 19 149/104 H 98 10/10/16 06:00 10/10/16 06:00 10/10/16 06:00 10/10/16 06:00 10/10/16 06:00 Intake and Output: 10/10/16 10/10/16 06:59 18:59 Intake Total 1980 Output Total 0 Balance 1980 0 - Medications Medications: Current Medications Erythromycin (Erythromycin) 500 mg PO Q6 [facility] PRN Reason: Protocol Stop: 10/11/16 00:00 Last Admin: 10/10/16 05:14 Dose: 500 mg Sodium Chloride (Sodium Chloride 0.9%) 1,000 mls @ 100 mls/hr IV .Q10H [facility] Last Admin: 10/09/16 22:30 Dose: 100 mls/hr Piperacillin Sod/Tazobactam Sod (Zosyn 3.375 In Ns 100ml) 100 mls @ 200 mls/hr IVPB Q6 [facility] PRN Reason: Protocol Stop: 10/18/16 12:01 Last Admin: 10/10/16 05:15 Dose: 200 mls/hr Neomycin Sulfate (Neomycin Tab) 1,000 mg PO Q4 [facility] Stop: 10/11/16 00:00 Last Admin: 10/10/16 05:14 Dose: 1,000 mg - Labs Labs: 10/10/16 07:00 10/10/16 07:00 PT 11.1 Seconds (9.9-11.8) 10/08/16 10:41 INR 1.03 (0.93-1.08) 10/08/16 10:41 APTT 28.2 Seconds (23.7-30.8) 10/08/16 10:41 - Constitutional Appears: Non-toxic, No Acute Distress - Head Exam Head Exam: NORMAL INSPECTION - Neck Exam Neck Exam: absent: Meningismus - Respiratory Exam Respiratory Exam: Decreased Breath Sounds - Cardiovascular Exam Cardiovascular Exam: +S1, +S2 - GI/Abdominal Exam GI & Abdominal Exam: Soft. absent: Tenderness Assessment and Plan - Assessment and Plan (Free Text) Plan: Assessment intra-abdominal abscess with probable colo-vesical fistula in a patient with colon cancer Obesity with BMI 39 Plan continue Zosyn pending procedure which is planned for tomorrow will monitor clinically
[2016-10-10] MEDS: Sodium Chloride 0.9% 1,000 ML IV SCH (16:00)
[2016-10-10] MEDS: Lactated Ringer's 1,000 ML IV SCH (22:18)
--- NOTE | 2016-10-10 23:55 | CP.PCM.PN ---
Subjective - Date & Time of Evaluation Date of Evaluation: 10/10/16 Time of Evaluation: 18:30 - Subjective Subjective: Recent diagnosis of colon cancer. sigmoid mass. [place]-vesical fistula on CT-PET. Currently on IV antibiotics for intra-abdominal abscess. Resection is planned for tomorrow. No abdominal pain. No nausea, vomiting. Iron deficiency anemia. s/p IV iron yesterday. Objective - Vital Signs/Intake and Output Vital Signs (last 24 hours): Temp Pulse Resp BP Pulse Ox 98.2 F 87 20 145/94 H 97 10/10/16 16:00 10/10/16 16:00 10/10/16 16:00 10/10/16 16:00 10/10/16 16:00 Intake and Output: 10/10/16 10/11/16 18:59 06:59 Intake Total 1140 540 Output Total 0 Balance 1140 540 - Medications Medications: Current Medications Amlodipine Besylate (Norvasc) 10 mg PO DAILY [facility] Last Admin: 10/10/16 12:03 Dose: 10 mg Erythromycin (Erythromycin) 500 mg PO Q6 [facility] PRN Reason: Protocol Stop: 10/11/16 00:00 Last Admin: 10/10/16 18:09 Dose: 500 mg Piperacillin Sod/Tazobactam Sod (Zosyn 3.375 In Ns 100ml) 100 mls @ 200 mls/hr IVPB Q6 [facility] PRN Reason: Protocol Stop: 10/18/16 12:01 Last Admin: 10/10/16 18:08 Dose: 200 mls/hr Lactated Ringer's (Lactated Ringer's) 1,000 mls @ 150 mls/hr IV .Q6H40M [facility] Last Admin: 10/10/16 22:18 Dose: 150 mls/hr Neomycin Sulfate (Neomycin Tab) 1,000 mg PO Q4 [facility] Stop: 10/11/16 00:00 Last Admin: 10/10/16 21:40 Dose: 1,000 mg - Labs Labs: 10/10/16 07:00 10/10/16 07:00 PT 11.1 Seconds (9.9-11.8) 10/08/16 10:41 INR 1.03 (0.93-1.08) 10/08/16 10:41 APTT 28.2 Seconds (23.7-30.8) 10/08/16 10:41 - Constitutional Appears: Well, Non-toxic - Head Exam Head Exam: ATRAUMATIC, NORMAL INSPECTION, NORMOCEPHALIC - Eye Exam Eye Exam: Normal appearance Pupil Exam: NORMAL ACCOMODATION - Neck Exam Neck Exam: Full ROM, Normal Inspection - Respiratory Exam Respiratory Exam: Clear to Ausculation Bilateral, NORMAL BREATHING PATTERN - Cardiovascular Exam Cardiovascular Exam: REGULAR RHYTHM, +S1, +S2 - GI/Abdominal Exam GI & Abdominal Exam: Soft, Normal Bowel Sounds - Rectal Exam Rectal Exam: NORMAL INSPECTION - Extremities Exam Extremities Exam: Full ROM, Normal Capillary Refill, Normal Inspection - Back Exam Back Exam: NORMAL INSPECTION - Neurological Exam Neurological Exam: Alert, Awake, CN II-XII Intact, Normal Gait, Oriented x3 - Psychiatric Exam Psychiatric exam: Normal Affect - Skin Skin Exam: Dry, Normal Color, Warm Assessment and Plan - Assessment and Plan (Free Text) Assessment: Assessment: 1. Colon cancer 2.Fluid collection behind colon, fistula colo-vesical 3. iron deficiency anemia 4. diverticulitis Plan : Colon cancer - T4, lesion, nodes positive on PET scan. No distant mets on PET scan. on IV antibiotics- Zosyn. . Surgery planned for Dr. Kilgore will do cystoscopy to assess bladder involvement with cancer. 2. iron deficiency anemia : iv iron sucrose 200 mg IV today. 3. ID : on zosyn . ID following. bedside. Had a lengthy discussion with patient and . They had lot of questions , all were answered to their satisfaction. He very likely will need chemotherapy post-op. He has stage III disease as per PET scan results. Thank you Dr. Waters for allowing us to participate in his care.
[2016-10-11] MEDS: Piperacillin/Tazobact 3.375 gm 100 ML IVPB SCH ×5 (00:48→23:33)
[2016-10-11] MEDS: Lactated Ringer's 1,000 ML IV SCH ×3 (05:10→18:35)
[2016-10-11] MEDS ORDERED: metroNIDAZOLE IV 500 mg/100 ml 500 MG/100 ML BAG IVPB SCH ×3 (07:30→22:00)
[2016-10-11 08:04] LABS: BASO # 0.04 K/mm3 (0.0-2.0); BASO % 0.5 % (0.0-3.0); EOS # 0.3 (0.0-0.7); EOS % 3.2 % (1.5-5.0); GRAN # 4.81 (1.4-6.5); GRAN % 61.3 % (50.0-68.0); HEMOGLOBIN 12.1 gm/dL (14.0-18.0); LYMPH # 2.1 (1.2-3.4); LYMPH % 26.1 % (22.0-35.0); MEAN CELL VOLUME 75.5 fL (80.0-105.0); MEAN CORPUSCULAR HEMOGLOBIN 23.5 pg (25.0-35.0); MEAN CORPUSCULAR HGB CONC 31.2 g/dl (31.0-37.0); MEAN PLATELET VOLUME 9.1 fl (7.0-11.0); MONO # 0.7 (0.1-0.6); MONO % 8.9 % (1.0-6.0); PLATELET COUNT 410 10^3/uL (120.0-450.0); RBC 5.14 10^6/uL (3.5-6.1); RED CELL DISTRIBUTION WIDTH 15.4 % (11.5-14.5); WHITE BLOOD COUNT 7.9 10^3/ul (4.5-11.0)
[2016-10-11 08:19] LABS: ALB/GLOB RATIO 1.1 (1.1-1.8); ALT/SGPT 29 U/L (7-56); AST/SGOT 22 U/L (15-59); BLOOD UREA NITROGEN 3 mg/dL (7-21); CALCIUM 9.1 mg/dL (8.4-10.5); GFR AFRICAN-AMERICAN > 60; GFR NON-AFRICAN AMERICAN > 60
--- NOTE | 2016-10-11 08:35 | CP.PCM.PN ---
Subjective - Date & Time of Evaluation Date of Evaluation: 10/11/16 Time of Evaluation: 08:00 - Subjective Subjective: Subjective: The patient was seen and examined at bedside on the general medical roland. No acute events overnight. Patient pending surgical resection of sigmoid mass later today and overall feels well and offers no complaints. Objective: VS: T 98.2, P 86, BP 145/94, RR 18, O2 100% on RA Gen: NAD HEENT: PERRL, EOMI, no icterus Neck: no JVD Lungs: CTA CV: RRR, no m/r/g Abd: NABS, soft, NT, ND Ext: no c/c/e Neuro: AAOx3, no focal motor deficits Laboratory Data: CBC reviewed and demonstrates Hb of 12, CMP reviewed Assessment: The patient is a 51 yo man with newly diagnosed adenocarcinoma of the sigmoid colon who was admitted for surgical resection after undergoing a PET scan which demonstrated possible bowel perforation and presence of colovesical fistula Plan: 1. Adenocarcinoma of the sigmoid colon, Stage III. Patient pending surgical resection today. Input from Dr. Bernard and surgical team noted and appreciated. Patient will likely require chemotherapy post-operatively 2. Colovesical fistula. Patient pending urologic evaluation for surgical repair 3. HTN. Patient started on Norvasc 10mg PO QD. Will monitor hemodynamics and adjust BP meds as needed 4. Prophylaxis. GI prophylaxis not indicated as patient is eating. DVT prophylaxis not indicated as patient is ambulatory Code Status: Full Code Objective - Vital Signs/Intake and Output Vital Signs (last 24 hours): Temp Pulse Resp BP Pulse Ox 98.2 F 87 20 145/94 H 97 10/10/16 16:00 10/10/16 16:00 10/10/16 16:00 10/10/16 16:00 10/10/16 16:00 Intake and Output: 10/11/16 10/11/16 06:59 18:59 Intake Total 2540 Balance 2540 - Medications Medications: Current Medications Amlodipine Besylate (Norvasc) 10 mg PO DAILY [facility] Last Admin: 10/10/16 12:03 Dose: 10 mg Piperacillin Sod/Tazobactam Sod (Zosyn 3.375 In Ns 100ml) 100 mls @ 200 mls/hr IVPB Q6 [facility] PRN Reason: Protocol Stop: 10/18/16 12:01 Last Admin: 10/11/16 05:09 Dose: 200 mls/hr Lactated Ringer's (Lactated Ringer's) 1,000 mls @ 150 mls/hr IV .Q6H40M [facility] Last Admin: 10/11/16 05:10 Dose: 150 mls/hr - Labs Labs: 10/11/16 07:00 10/11/16 07:00 PT 11.1 Seconds (9.9-11.8) 10/08/16 10:41 INR 1.03 (0.93-1.08) 10/08/16 10:41 APTT 28.2 Seconds (23.7-30.8) 10/08/16 10:41
[2016-10-11] MEDS ORDERED: Bupivacaine 0.5% Inj(30mL) ONE (11:15)
[2016-10-11] MEDS ORDERED: Propofol 10 mg/ml Inj (20 ML) ONE (11:16)
[2016-10-11] MEDS ORDERED: Succinylcholine 200 mg/10 ml Inj IV ONE (11:17)
[2016-10-11] MEDS ORDERED: Midazolam 2 MG/2 ML VIAL ONE (11:17)
[2016-10-11] MEDS ORDERED: metroNIDAZOLE IV 500 mg/100 ml 500 MG/100 ML BAG ONE (11:38)
[2016-10-11] MEDS ORDERED: Sevoflurane - Inhalation Anesthetic Liq (250 ml) ONE (12:57)
[2016-10-11] MEDS ORDERED: Rocuronium 10 mg/ml (5 ml) ONE (13:20)
[2016-10-11] MEDS ORDERED: 0.125% Bupivacaine in 0.9% NS 750mL On Q Dual pump IJ ONE (13:52)
[2016-10-11] MEDS ORDERED: Methylene Blue 10 mg/ml (1ml) Inj ONE (14:16)
[2016-10-11] MEDS ORDERED: Neostigmine Methylsulfate 3mg/3ml Syringe IV ONE (15:28)
[2016-10-11] MEDS ORDERED: Sodium Chloride 0.9% 1,000 ML IV SCH (16:00)
[2016-10-11] MEDS ORDERED: HYDROmorphone 0.5 mg/0.5 ml ISec IVP PRN (16:00)
--- NOTE | 2016-10-11 16:05 | PCM.SURG1 ---
Surgeon's Initial Post Op Note - Surgeon's Notes Surgeon: Dr. Giang Sr. Payroll Manager: Dr. Stark, Dr. Vance PGY3, Dr. Nuno PGY2 Type of Anesthesia: General Endo Pre-Operative Diagnosis: intra-abdominal abscess; colon Ca Operative Findings: see dictation Post-Operative Diagnosis: same Operation Performed: LAR, splenic flexure mobilization, drainage of intra- abdominal abscess, cystoscopy, insertion of ureteral stents, repair of bladder wall Specimen/Specimens Removed: rectal sigmoid mesentery; distal portion of resected rectosigmoid mesentery; abscess cavity; abscess wall; sigmoid/ rectosigmoid/omentum Estimated Blood Loss: EBL {In ML}: 200 Blood Products Given: N/A Drains Used: Conor Post-Op Condition: Good Date of Surgery/Procedure: 10/11/16 Time of Surgery/Procedure: 11:30
[2016-10-11] MEDS ORDERED: HYDROmorphone 0.5 mg/0.5 ml ISec ONE ×2 (17:09→17:33)
[2016-10-11] MEDS ORDERED: HYDROmorphone 0.5 mg/0.5 ml ISec IVP ONE (17:33)
[2016-10-11] MEDS: HYDROmorphone 1 mg/ml ISec IVP PRN ×2 (18:56→21:46)
[2016-10-11] MEDS: metroNIDAZOLE IV 500 mg/100 ml 500 MG/100 ML BAG IVPB SCH (19:48)
--- NOTE | 2016-10-12 00:18 | CP.PCM.PN ---
Subjective - Date & Time of Evaluation Date of Evaluation: 10/11/16 Time of Evaluation: 19:00 - Subjective Subjective: S/ P surgical resection today of colon cancer. Abdominal abscess drained. repair of bladder fistula. b/l stents placed in ureters. he is sedated, responsive. Denies pain. Family bedside. Objective - Vital Signs/Intake and Output Vital Signs (last 24 hours): Temp Pulse Resp BP Pulse Ox 97.5 F L 106 H 20 149/85 97 10/11/16 18:14 10/11/16 18:14 10/11/16 18:14 10/11/16 18:14 10/11/16 18:14 Intake and Output: 10/11/16 10/12/16 18:59 06:59 Intake Total 0 Output Total 1260 Balance 0 -1260 - Medications Medications: Current Medications Amlodipine Besylate (Norvasc) 10 mg PO DAILY [facility] Last Admin: 10/11/16 09:57 Dose: Not Given Famotidine (Pepcid) 20 mg IVP DAILY [facility] Heparin Sodium (Porcine) (Heparin) 5,000 units SC Q12 [facility] PRN Reason: Protocol Hydromorphone HCl (Dilaudid) 1 mg IVP Q3H PRN PRN Reason: Pain, moderate (4-7) Last Admin: 10/11/16 21:46 Dose: 1 mg Piperacillin Sod/Tazobactam Sod (Zosyn 3.375 In Ns 100ml) 100 mls @ 200 mls/hr IVPB Q6 [facility] PRN Reason: Protocol Stop: 10/18/16 12:01 Last Admin: 10/11/16 23:33 Dose: 200 mls/hr Lactated Ringer's (Lactated Ringer's) 1,000 mls @ 125 mls/hr IV .Q8H [facility] Last Admin: 10/11/16 18:35 Dose: 125 mls/hr Metronidazole (Flagyl) 500 mg in 100 mls @ 100 mls/hr IVPB Q8H [facility] PRN Reason: Protocol Last Admin: 10/11/16 19:48 Dose: 100 mls/hr Ondansetron HCl (Zofran Inj) 4 mg IVP Q6 PRN PRN Reason: Nausea/Vomiting - Labs Labs: 10/11/16 07:00 10/11/16 07:00 PT 11.1 Seconds (9.9-11.8) 10/08/16 10:41 INR 1.03 (0.93-1.08) 10/08/16 10:41 APTT 28.2 Seconds (23.7-30.8) 10/08/16 10:41 - Constitutional Appears: Non-toxic - Head Exam Head Exam: ATRAUMATIC, NORMAL INSPECTION, NORMOCEPHALIC - Eye Exam Eye Exam: Normal appearance - ENT Exam ENT Exam: Mucous Membranes Moist, Normal Exam - Neck Exam Neck Exam: Normal Inspection - Respiratory Exam Respiratory Exam: Clear to Ausculation Bilateral, NORMAL BREATHING PATTERN - Cardiovascular Exam Cardiovascular Exam: REGULAR RHYTHM, +S1, +S2 - GI/Abdominal Exam Additional comments: in surgical dressing - Extremities Exam Extremities Exam: Full ROM, Normal Inspection - Back Exam Back Exam: NORMAL INSPECTION - Neurological Exam Neurological Exam: CN II-XII Intact, Oriented x3 - Skin Skin Exam: Normal Color, Warm Assessment and Plan - Assessment and Plan (Free Text) Assessment: 1. Colon Cancer , s/p resection. Intra-abdominal abscess drained. vesical fistula repaired. sedated. 2. Iron deficiency anemia, s/p IV iron 3 doses. Will monitor Hb/hct . 3. On IV antibiotics as per ID. 4. renal : normal. 5. : vesical fistula repaired. Thank you Dr. Waters for allowing us to participate in his care.
[2016-10-12] MEDS: Lactated Ringer's 1,000 ML IV SCH (01:06)
[2016-10-12] MEDS: HYDROmorphone 1 mg/ml ISec IVP PRN ×8 (01:08→23:36)
[2016-10-12] MEDS: metroNIDAZOLE IV 500 mg/100 ml 500 MG/100 ML BAG IVPB SCH ×3 (03:22→19:32)
[2016-10-12] MEDS: Piperacillin/Tazobact 3.375 gm 100 ML IVPB SCH ×4 (05:40→23:36)
--- NOTE | 2016-10-12 08:18 | CP.PCM.PN ---
<Elizabeth Vance - Last Filed: 10/12/16 08:20> Subjective - Date & Time of Evaluation Date of Evaluation: 10/12/16 Time of Evaluation: 08:15 - Subjective Subjective: General Surgery - Dr. Cespedes Pt S&E. SUMAN. Pt complains of abdominal pain near the incision, controlled with current meds. He is working with incentive spirometer. He denies any N/V , F/C, SOB/CP. NGT with ~100cc total drainage since surgery, removed at bedside. Xiao catheter with 2200cc cloudy yellow urine past 12hours. Objective - Vital Signs/Intake and Output Vital Signs (last 24 hours): Temp Pulse Resp BP Pulse Ox 97.5 F L 106 H 20 149/85 97 10/11/16 18:14 10/11/16 18:14 10/11/16 18:14 10/11/16 18:14 10/11/16 18:14 Intake and Output: 10/12/16 10/12/16 06:59 18:59 Intake Total 0 Output Total 1840 Balance -1840 - Medications Medications: Current Medications Amlodipine Besylate (Norvasc) 10 mg PO DAILY [facility] Last Admin: 10/11/16 09:57 Dose: Not Given Famotidine (Pepcid) 20 mg IVP DAILY [facility] Heparin Sodium (Porcine) (Heparin) 5,000 units SC Q12 [facility] PRN Reason: Protocol Hydromorphone HCl (Dilaudid) 1 mg IVP Q3H PRN PRN Reason: Pain, moderate (4-7) Last Admin: 10/12/16 07:52 Dose: 1 mg Piperacillin Sod/Tazobactam Sod (Zosyn 3.375 In Ns 100ml) 100 mls @ 200 mls/hr IVPB Q6 [facility] PRN Reason: Protocol Stop: 10/18/16 12:01 Last Admin: 10/12/16 05:40 Dose: 200 mls/hr Lactated Ringer's (Lactated Ringer's) 1,000 mls @ 125 mls/hr IV .Q8H [facility] Last Admin: 10/12/16 01:06 Dose: 125 mls/hr Metronidazole (Flagyl) 500 mg in 100 mls @ 100 mls/hr IVPB Q8H [facility] PRN Reason: Protocol Last Admin: 10/12/16 03:22 Dose: 100 mls/hr Ondansetron HCl (Zofran Inj) 4 mg IVP Q6 PRN PRN Reason: Nausea/Vomiting - Labs Labs: 10/11/16 07:00 10/11/16 07:00 PT 11.1 Seconds (9.9-11.8) 10/08/16 10:41 INR 1.03 (0.93-1.08) 10/08/16 10:41 APTT 28.2 Seconds (23.7-30.8) 10/08/16 10:41 - Constitutional Appears: No Acute Distress - Head Exam Head Exam: ATRAUMATIC, NORMAL INSPECTION, NORMOCEPHALIC - Eye Exam Eye Exam: Normal appearance - Respiratory Exam Respiratory Exam: NORMAL BREATHING PATTERN. absent: Respiratory Distress - Cardiovascular Exam Cardiovascular Exam: REGULAR RHYTHM - GI/Abdominal Exam GI & Abdominal Exam: Soft, Tenderness (appropriately ). absent: Distended, Firm , Guarding, Rebound Additional comments: midline incision with surgical dressing in place, C/D/I Conor drains x2 in LUQ with sanguinous drainage - Superior drain - 70cc, Inferior drain - 20cc since surgery - Neurological Exam Neurological Exam: Alert, Oriented x3 - Psychiatric Exam Psychiatric exam: Normal Affect, Normal Mood - Skin Skin Exam: Dry, Intact Assessment and Plan - Assessment and Plan (Free Text) Assessment: 51 yo M w/ colon adenoca and abscess, S/P Ex-Lap, Low Anterior Resection and bladder repair, POD #1 -Doing well post-operatively -NGT removed, may have Sips of water and ice chips -Monitor for bowel function -Continue IV Abx (Zosyn/Flagyl) -Pain control with On-Q and Dilaudid PRN -Xiao catheter must remain in place -F/U Pathology -OOB to chair and encourage Incentive Spirometer -GI/DVT px DW Dr. Rubina Vance PGY3 <Mik Cespedes - Last Filed: 10/29/16 00:22> Objective - Vital Signs/Intake and Output Vital Signs (last 24 hours): Temp Pulse Resp BP Pulse Ox 100 F H 75 18 131/91 H 96 10/15/16 08:46 10/15/16 08:46 10/15/16 08:46 10/15/16 09:20 10/15/16 08:46 - Labs Labs: 10/15/16 06:40 10/15/16 06:40 PT 11.1 Seconds (9.9-11.8) 10/08/16 10:41 INR 1.03 (0.93-1.08) 10/08/16 10:41 APTT 28.2 Seconds (23.7-30.8) 10/08/16 10:41 Assessment and Plan - Assessment and Plan (Free Text) Plan: Patient was seen and examined by me. I agree with assessment and plan as per resident's note.
[2016-10-12 09:03] LABS: BASO # 0.02 K/mm3 (0.0-2.0); BASO % 0.2 % (0.0-3.0); EOS % 0.1 % (1.5-5.0); GRAN # 9.06 (1.4-6.5); GRAN % 76.5 % (50.0-68.0); HEMOGLOBIN 11.5 gm/dL (14.0-18.0); LYMPH # 1.5 (1.2-3.4); LYMPH % 12.9 % (22.0-35.0); MEAN CELL VOLUME 76.2 fL (80.0-105.0); MEAN CORPUSCULAR HEMOGLOBIN 23.8 pg (25.0-35.0); MEAN CORPUSCULAR HGB CONC 31.2 g/dl (31.0-37.0); MEAN PLATELET VOLUME 9.1 fl (7.0-11.0); MONO # 1.2 (0.1-0.6); MONO % 10.3 % (1.0-6.0); PLATELET COUNT 385 10^3/uL (120.0-450.0); RBC 4.84 10^6/uL (3.5-6.1); RED CELL DISTRIBUTION WIDTH 15.8 % (11.5-14.5); WHITE BLOOD COUNT 11.8 10^3/ul (4.5-11.0)
[2016-10-12 09:13] LABS: ALB/GLOB RATIO 1.1 (1.1-1.8); ALBUMIN 3.4 g/dL (3.0-4.8); ALT/SGPT 28 U/L (7-56); AST/SGOT 21 U/L (15-59); BLOOD UREA NITROGEN 7 mg/dL (7-21); CALCIUM 8.3 mg/dL (8.4-10.5); GFR AFRICAN-AMERICAN > 60; GFR NON-AFRICAN AMERICAN > 60
[2016-10-12] MEDS: Potassium Chloride 20 MEQ in Dextrose 5%/0.45% NS 1,000 ML IV SCH ×2 (11:25→20:26)
--- NOTE | 2016-10-12 11:41 | CP.PCM.PN ---
Subjective - Date & Time of Evaluation Date of Evaluation: 10/12/16 Time of Evaluation: 11:00 - Subjective Subjective: Patient had surgery yesterday, no fevers overnight. Bearable abdominal discomfort. Objective - Vital Signs/Intake and Output Vital Signs (last 24 hours): Temp Pulse Resp BP Pulse Ox 98.2 F 87 20 145/94 H 97 10/10/16 16:00 10/10/16 16:00 10/10/16 16:00 10/10/16 16:00 10/10/16 16:00 Intake and Output: 10/11/16 10/11/16 06:59 18:59 Intake Total 2540 Balance 2540 - Medications Medications: Current Medications Amlodipine Besylate (Norvasc) 10 mg PO DAILY [facility] Last Admin: 10/10/16 12:03 Dose: 10 mg Piperacillin Sod/Tazobactam Sod (Zosyn 3.375 In Ns 100ml) 100 mls @ 200 mls/hr IVPB Q6 [facility] PRN Reason: Protocol Stop: 10/18/16 12:01 Last Admin: 10/11/16 05:09 Dose: 200 mls/hr Lactated Ringer's (Lactated Ringer's) 1,000 mls @ 150 mls/hr IV .Q6H40M [facility] Last Admin: 10/11/16 05:10 Dose: 150 mls/hr - Labs Labs: 10/11/16 07:00 10/11/16 07:00 PT 11.1 Seconds (9.9-11.8) 10/08/16 10:41 INR 1.03 (0.93-1.08) 10/08/16 10:41 APTT 28.2 Seconds (23.7-30.8) 10/08/16 10:41 - Constitutional Appears: Non-toxic, No Acute Distress - Head Exam Head Exam: NORMAL INSPECTION - Neck Exam Neck Exam: absent: Lymphadenopathy, Meningismus - Respiratory Exam Respiratory Exam: Decreased Breath Sounds - Cardiovascular Exam Cardiovascular Exam: +S1, +S2 - GI/Abdominal Exam GI & Abdominal Exam: Soft. absent: Tenderness Additional comments: dressings in place Assessment and Plan - Assessment and Plan (Free Text) Plan: Assessment intra-abdominal abscess with probable colo-vesical fistula in a patient with colon cancer S/P exploratory laparotomy, drainage of abscess and resection of rectosigmoid area and repair of bladder wall Obesity with BMI 39 Plan continue Zosyn pending cultures from the intra-abdominal abscess will continue to monitor clinically
[2016-10-13] MEDS: metroNIDAZOLE IV 500 mg/100 ml 500 MG/100 ML BAG IVPB SCH (03:27)
[2016-10-13] MEDS: HYDROmorphone 1 mg/ml ISec IVP PRN ×6 (03:32→20:19)
--- NOTE | 2016-10-13 06:02 | CP.PCM.CON ---
History of Present Illness - History of Present Illness History of Present Illness: General Surgery - Dr. Cespedes Pt S&E. SUMAN. Pt complains of abdominal pain near the incision, controlled with current meds. Complained of two episodes of nausea and resolved after taking He is working with incentive spirometer. +OOB. He denies any N/V, F/C, SOB/CP. NGT with ~100cc total drainage since surgery, removed at bedside. Xiao catheter with 2200cc cloudy yellow urine past 12hours. Past Patient History - Infectious Disease Hx of Infectious Diseases: None - Past Medical History & Family History Past Medical History?: Yes Past Family History: Reviewed and not pertinent - Past Social History Smoking Status: Never Smoked - HEMATOLOGICAL/ONCOLOGICAL Hx Blood Transfusions: No Hx Blood Transfusion Reaction: No - MUSCULOSKELETAL/RHEUMATOLOGICAL Hx Falls: No - GASTROINTESTINAL Other/Comment: pet scan 10/04/16+ colon tumor - GENITOURINARY/GYNECOLOGICAL Hx Urinary Tract Infection: Yes (was on cipro 7 days finished 10/05/16) - PSYCHIATRIC Hx Substance Use: No - SURGICAL HISTORY Hx Surgeries: Yes (umbilical hernia repair) - ANESTHESIA Hx Anesthesia Reactions: No Hx Malignant Hyperthermia: No Meds Allergies/Adverse Reactions: Allergies Allergy/AdvReac Type Severity Reaction Status Date / Time tree nut Allergy ANAPHYLAXIS Verified 10/08/16 09:59 - Medications Medications: Current Medications Amlodipine Besylate (Norvasc) 10 mg PO DAILY [facility] Last Admin: 10/12/16 10:27 Dose: 10 mg Famotidine (Pepcid) 20 mg IVP DAILY [facility] Last Admin: 10/12/16 10:30 Dose: 20 mg Heparin Sodium (Porcine) (Heparin) 5,000 units SC Q12 [facility] PRN Reason: Protocol Last Admin: 10/12/16 21:37 Dose: 5,000 units Hydromorphone HCl (Dilaudid) 1 mg IVP Q3H PRN PRN Reason: Pain, moderate (4-7) Last Admin: 10/13/16 03:32 Dose: 1 mg Piperacillin Sod/Tazobactam Sod (Zosyn 3.375 In Ns 100ml) 100 mls @ 200 mls/hr IVPB Q6 [facility] PRN Reason: Protocol Stop: 10/18/16 12:01 Last Admin: 10/12/16 23:36 Dose: 200 mls/hr Metronidazole (Flagyl) 500 mg in 100 mls @ 100 mls/hr IVPB Q8H [facility] PRN Reason: Protocol Last Admin: 10/13/16 03:27 Dose: 100 mls/hr Potassium Chloride 20 meq/ (Dextrose/Sodium Chloride) 1,010 mls @ 125 mls/hr IV .Q8H5M [facility] Last Admin: 10/12/16 20:26 Dose: 125 mls/hr Ondansetron HCl (Zofran Inj) 4 mg IVP Q6 PRN PRN Reason: Nausea/Vomiting Last Admin: 10/12/16 17:17 Dose: 4 mg Results - Vital Signs Recent Vital Signs: Last Vital Signs Temp 98.2 F 10/12/16 16:00 Pulse 106 H 10/12/16 16:00 Resp 20 10/12/16 16:00 BP 130/93 H 10/12/16 16:00 Pulse Ox 96 10/12/16 16:00 - Labs Result Diagrams: 10/12/16 08:30 10/12/16 08:30 Labs: Laboratory Results - last 24 hr 10/12/16 10/12/16 08:30 08:30 WBC 11.8 H D RBC 4.84 Hgb 11.5 L Hct 36.9 L MCV 76.2 L MCH 23.8 L MCHC 31.2 RDW 15.8 H Plt Count 385 MPV 9.1 Gran % 76.5 H Lymph % (Auto) 12.9 L [place] % (Auto) 10.3 H Eos % (Auto) 0.1 L Baso % (Auto) 0.2 Gran # 9.06 H Lymph # 1.5 [place] # 1.2 H Eos # 0.0 Baso # 0.02 Sodium 139 Potassium 3.9 Chloride 106 Carbon Dioxide 25 Anion Gap 12 BUN 7 Creatinine 1.1 Est GFR ( Amer) > 60 Est GFR (Non-Af Amer) > 60 Random Glucose 114 H Calcium 8.3 L Total Bilirubin 1.2 AST 21 ALT 28 Alkaline Phosphatase 46 Total Protein 6.5 Albumin 3.4 Globulin 3.1 Albumin/Globulin Ratio 1.1
--- NOTE | 2016-10-13 06:08 | CP.PCM.PN ---
<Charlesn - Last Filed: 10/13/16 06:20> Subjective - Date & Time of Evaluation Date of Evaluation: 10/13/16 Time of Evaluation: 05:50 - Subjective Subjective: General Surgery - Dr. Cespedes Pt S&E. SUMAN. Pt complains of abdominal pain near the incision, controlled with current meds. two epsidoes of nausea overnight, resolved after taking zofran. no vomiting. He is working with incentive spirometer. +OOB. -Flatus. He denies any N/V, F/C, SOB/CP. Xiao catheter 1000cc cloudy yellow urine past 12hours. Blake1: 50cc past 12hr serosang. Blake2: 10cc serous Objective - Vital Signs/Intake and Output Vital Signs (last 24 hours): Temp Pulse Resp BP Pulse Ox 98.2 F 106 H 20 130/93 H 96 10/12/16 16:00 10/12/16 16:00 10/12/16 16:00 10/12/16 16:00 10/12/16 16:00 Intake and Output: 10/12/16 10/13/16 18:59 06:59 Intake Total 0 Output Total 1160 Balance -1160 - Medications Medications: Current Medications Amlodipine Besylate (Norvasc) 10 mg PO DAILY [facility] Last Admin: 10/12/16 10:27 Dose: 10 mg Famotidine (Pepcid) 20 mg IVP DAILY [facility] Last Admin: 10/12/16 10:30 Dose: 20 mg Heparin Sodium (Porcine) (Heparin) 5,000 units SC Q12 [facility] PRN Reason: Protocol Last Admin: 10/12/16 21:37 Dose: 5,000 units Hydromorphone HCl (Dilaudid) 1 mg IVP Q3H PRN PRN Reason: Pain, moderate (4-7) Last Admin: 10/13/16 03:32 Dose: 1 mg Piperacillin Sod/Tazobactam Sod (Zosyn 3.375 In Ns 100ml) 100 mls @ 200 mls/hr IVPB Q6 [facility] PRN Reason: Protocol Stop: 10/18/16 12:01 Last Admin: 10/12/16 23:36 Dose: 200 mls/hr Metronidazole (Flagyl) 500 mg in 100 mls @ 100 mls/hr IVPB Q8H [facility] PRN Reason: Protocol Last Admin: 10/13/16 03:27 Dose: 100 mls/hr Potassium Chloride 20 meq/ (Dextrose/Sodium Chloride) 1,010 mls @ 125 mls/hr IV .Q8H5M [facility] Last Admin: 10/12/16 20:26 Dose: 125 mls/hr Ondansetron HCl (Zofran Inj) 4 mg IVP Q6 PRN PRN Reason: Nausea/Vomiting Last Admin: 10/12/16 17:17 Dose: 4 mg - Labs Labs: 10/12/16 08:30 10/12/16 08:30 PT 11.1 Seconds (9.9-11.8) 10/08/16 10:41 INR 1.03 (0.93-1.08) 10/08/16 10:41 APTT 28.2 Seconds (23.7-30.8) 10/08/16 10:41 - Constitutional Appears: No Acute Distress - Eye Exam Eye Exam: EOMI, Normal appearance - Respiratory Exam Respiratory Exam: Clear to Ausculation Bilateral, NORMAL BREATHING PATTERN. absent: Accessory Muscle Use, Wheezes - Cardiovascular Exam Cardiovascular Exam: REGULAR RHYTHM, +S1, +S2 - GI/Abdominal Exam GI & Abdominal Exam: Soft - Exam Additional comments: Xiao in place. 1000cc cloudy yellow. - Neurological Exam Neurological Exam: Awake, Normal Gait - Psychiatric Exam Psychiatric exam: Normal Affect, Normal Mood - Skin Skin Exam: Dry, Normal Color Assessment and Plan - Assessment and Plan (Free Text) Assessment: 51 yo M w/ colon adenoca and abscess, POD#1 S/P Ex-Lap, Low Anterior Resection and bladder repair Plan: -Doing well post-operatively -keep on sips and chips -await bowel function return -Continue IV Abx (Zosyn/Flagyl) -Pain control with On-Q and Dilaudid PRN -Xiao catheter remain in place -F/U Pathology -OOB to chair and encourage Incentive Spirometer -GI/DVT px DW Dr. Rubina Ware PGY1 <Mik Cespedes - Last Filed: 10/29/16 00:23> Objective - Vital Signs/Intake and Output Vital Signs (last 24 hours): Temp Pulse Resp BP Pulse Ox 100 F H 75 18 131/91 H 96 10/15/16 08:46 10/15/16 08:46 10/15/16 08:46 10/15/16 09:20 10/15/16 08:46 - Labs Labs: 10/15/16 06:40 10/15/16 06:40 PT 11.1 Seconds (9.9-11.8) 10/08/16 10:41 INR 1.03 (0.93-1.08) 10/08/16 10:41 APTT 28.2 Seconds (23.7-30.8) 10/08/16 10:41 Assessment and Plan - Assessment and Plan (Free Text) Plan: Patient was seen and examined by me. I agree with assessment and plan as per resident's note.
[2016-10-13] MEDS: Piperacillin/Tazobact 3.375 gm 100 ML IVPB SCH ×4 (06:28→23:29)
[2016-10-13 07:37] LABS: BASO # 0.05 K/mm3 (0.0-2.0); BASO % 0.4 % (0.0-3.0); EOS # 0.1 (0.0-0.7); EOS % 1.1 % (1.5-5.0); GRAN # 8.22 (1.4-6.5); GRAN % 72.5 % (50.0-68.0); HEMOGLOBIN 10.5 gm/dL (14.0-18.0); LYMPH # 1.6 (1.2-3.4); MEAN CELL VOLUME 76.9 fL (80.0-105.0); MEAN CORPUSCULAR HEMOGLOBIN 23.6 pg (25.0-35.0); MEAN CORPUSCULAR HGB CONC 30.7 g/dl (31.0-37.0); MEAN PLATELET VOLUME 9.4 fl (7.0-11.0); MONO # 1.4 (0.1-0.6); PLATELET COUNT 384 10^3/uL (120.0-450.0); RBC 4.45 10^6/uL (3.5-6.1); RED CELL DISTRIBUTION WIDTH 16.1 % (11.5-14.5); WHITE BLOOD COUNT 11.4 10^3/ul (4.5-11.0)
[2016-10-13 07:51] LABS: ALBUMIN 3.4 g/dL (3.0-4.8); ALT/SGPT 26 U/L (7-56); AST/SGOT 24 U/L (15-59); BLOOD UREA NITROGEN 7 mg/dL (7-21); GFR AFRICAN-AMERICAN > 60; GFR NON-AFRICAN AMERICAN > 60
--- NOTE | 2016-10-13 09:09 | CP.PCM.PN ---
Subjective - Date & Time of Evaluation Date of Evaluation: 10/13/16 Time of Evaluation: 08:30 - Subjective Subjective: Subjective: Patient seen and examined at bedside on the general medical roland. No acute events overnight. He remains afebrile and hemodynamically stable and is doing well post-operatively. He reports the pain is well controlled and largely offers no complaints. Objective: VS: T 98.2, P 106, BP 130/93, RR 18, O2 96% on RA Gen: NAD HEENT: PERRL, EOMI, no scleral icterus, no conjunctival pallor Neck: No JVD Lungs: CTA CV: RRR, no m/r/g Abd: obese, NABS, soft, (+) tender to palpation at surgical site with voluntary guarding with site appearing c/d/i, (+) drains in place Ext: no c/c/e Neuro: AAOx3, no focal motor deficits Laboratory Data: WBC 11.4 with 73% neutrophils, Hb 10.5, Hct 34.2, Plt 384, MCV 77 CMP reviewed and largely unremarkable except for K 3.4 Blood cultures negative to date. Urine culture negative to date Assessment: The patient is a 51 yo man with newly diagnosed adenocarcinoma of the sigmoid colon who is s/p ex-lap with lower anterior resection of colon with drainage of intra-abdominal abscess and repair of bladder wall POD #2 Plan: 1. Stage III adenocarcinoma of the sigmoid colon s/p ex-lap with surgical resection POD #2. Continue with postoperative care as per Dr. Reynolds and the surgical team. Input from Dr. Fields noted and appreciated and the patient will likely require chemotherapy postoperatively given PET scan findings demonstrating Stage III malignancy 2. HTN. BP improved, continue with Norvasc 10mg PO QD 3. Iron deficiency anemia. Input from Dr. Fields appreciated and patient as received IV iron infusions. Continue to monitor CBC daily 4. Prophylaxis. Continue with Pepcid for GI prophylaxis. Continue with Heparin for DVT prophylaxis Code Status: Full Code Objective - Vital Signs/Intake and Output Vital Signs (last 24 hours): Temp Pulse Resp BP Pulse Ox 98.2 F 106 H 20 130/93 H 96 10/12/16 16:00 10/12/16 16:00 10/12/16 16:00 10/12/16 16:00 10/12/16 16:00 Intake and Output: 10/13/16 10/13/16 06:59 18:59 Intake Total 0 Output Total 1160 1600 Balance -1160 -1600 - Medications Medications: Current Medications Amlodipine Besylate (Norvasc) 10 mg PO DAILY [facility] Last Admin: 10/12/16 10:27 Dose: 10 mg Famotidine (Pepcid) 20 mg IVP DAILY [facility] Last Admin: 10/12/16 10:30 Dose: 20 mg Heparin Sodium (Porcine) (Heparin) 5,000 units SC Q12 [facility] PRN Reason: Protocol Last Admin: 10/12/16 21:37 Dose: 5,000 units Hydromorphone HCl (Dilaudid) 1 mg IVP Q3H PRN PRN Reason: Pain, moderate (4-7) Last Admin: 10/13/16 06:28 Dose: 1 mg Piperacillin Sod/Tazobactam Sod (Zosyn 3.375 In Ns 100ml) 100 mls @ 200 mls/hr IVPB Q6 [facility] PRN Reason: Protocol Stop: 10/18/16 12:01 Last Admin: 10/13/16 06:28 Dose: 200 mls/hr Metronidazole (Flagyl) 500 mg in 100 mls @ 100 mls/hr IVPB Q8H [facility] PRN Reason: Protocol Last Admin: 10/13/16 03:27 Dose: 100 mls/hr Potassium Chloride 20 meq/ (Dextrose/Sodium Chloride) 1,010 mls @ 125 mls/hr IV .Q8H5M [facility] Last Admin: 10/12/16 20:26 Dose: 125 mls/hr Ondansetron HCl (Zofran Inj) 4 mg IVP Q6 PRN PRN Reason: Nausea/Vomiting Last Admin: 10/12/16 17:17 Dose: 4 mg - Labs Labs: 10/13/16 07:00 10/13/16 07:00 PT 11.1 Seconds (9.9-11.8) 10/08/16 10:41 INR 1.03 (0.93-1.08) 10/08/16 10:41 APTT 28.2 Seconds (23.7-30.8) 10/08/16 10:41
--- NOTE | 2016-10-13 11:04 | CP.PCM.PN ---
Subjective - Date & Time of Evaluation Date of Evaluation: 10/13/16 Time of Evaluation: 10:10 - Subjective Subjective: Comfortable, afebrile, no abdominal pain, Objective - Vital Signs/Intake and Output Vital Signs (last 24 hours): Temp Pulse Resp BP Pulse Ox 98.2 F 106 H 20 130/93 H 96 10/12/16 16:00 10/12/16 16:00 10/12/16 16:00 10/12/16 16:00 10/12/16 16:00 Intake and Output: 10/13/16 10/13/16 06:59 18:59 Intake Total 0 Output Total 1160 1600 Balance -1160 -1600 - Medications Medications: Current Medications Amlodipine Besylate (Norvasc) 10 mg PO DAILY [facility] Last Admin: 10/12/16 10:27 Dose: 10 mg Famotidine (Pepcid) 20 mg IVP DAILY [facility] Last Admin: 10/12/16 10:30 Dose: 20 mg Heparin Sodium (Porcine) (Heparin) 5,000 units SC Q12 ROCAEL PRN Reason: Protocol Last Admin: 10/12/16 21:37 Dose: 5,000 units Hydromorphone HCl (Dilaudid) 1 mg IVP Q3H PRN PRN Reason: Pain, moderate (4-7) Last Admin: 10/13/16 06:28 Dose: 1 mg Piperacillin Sod/Tazobactam Sod (Zosyn 3.375 In Ns 100ml) 100 mls @ 200 mls/hr IVPB Q6 ROCAEL PRN Reason: Protocol Stop: 10/18/16 12:01 Last Admin: 10/13/16 06:28 Dose: 200 mls/hr Metronidazole (Flagyl) 500 mg in 100 mls @ 100 mls/hr IVPB Q8H ROCAEL PRN Reason: Protocol Last Admin: 10/13/16 03:27 Dose: 100 mls/hr Potassium Chloride 20 meq/ (Dextrose/Sodium Chloride) 1,010 mls @ 125 mls/hr IV .Q8H5M [facility] Last Admin: 10/12/16 20:26 Dose: 125 mls/hr Ondansetron HCl (Zofran Inj) 4 mg IVP Q6 PRN PRN Reason: Nausea/Vomiting Last Admin: 10/12/16 17:17 Dose: 4 mg - Labs Labs: 10/13/16 07:00 10/13/16 07:00 PT 11.1 Seconds (9.9-11.8) 10/08/16 10:41 INR 1.03 (0.93-1.08) 10/08/16 10:41 APTT 28.2 Seconds (23.7-30.8) 10/08/16 10:41 - Constitutional Appears: Non-toxic, No Acute Distress - Head Exam Head Exam: NORMAL INSPECTION - ENT Exam ENT Exam: Mucous Membranes Moist - Neck Exam Neck Exam: absent: Lymphadenopathy, Meningismus - Respiratory Exam Respiratory Exam: Decreased Breath Sounds - Cardiovascular Exam Cardiovascular Exam: +S1, +S2 - GI/Abdominal Exam GI & Abdominal Exam: Soft. 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
[2016-10-13] MEDS: Potassium Chloride 20 MEQ in Dextrose 5%/0.45% NS 1,000 ML IV SCH ×2 (12:00→22:02)
[2016-10-13] MEDS ORDERED: Oxycodone/Acetaminophen 5/325 mg Tab PO PRN (16:54)
[2016-10-13] MEDS ORDERED: Potassium Chloride 20 mEq ER Tab PO ONE (18:31)
[2016-10-13] MEDS: DiphenhydrAMINE 50 mg/ml Inj IVP PRN (22:02)
[2016-10-14 00:32] VITALS: RESP 18
[2016-10-14] MEDS: HYDROmorphone 1 mg/ml ISec IVP PRN ×4 (03:39→14:54)
[2016-10-14] MEDS: Piperacillin/Tazobact 3.375 gm 100 ML IVPB SCH ×4 (05:15→23:27)
[2016-10-14 08:00] LABS: ALBUMIN 3.4 g/dL (3.0-4.8); ALT/SGPT 29 U/L (7-56); AST/SGOT 24 U/L (15-59); BLOOD UREA NITROGEN 5 mg/dL (7-21); CALCIUM 8.6 mg/dL (8.4-10.5); GFR AFRICAN-AMERICAN > 60; GFR NON-AFRICAN AMERICAN > 60
[2016-10-14 08:01] LABS: BASO # 0.02 K/mm3 (0.0-2.0); BASO % 0.2 % (0.0-3.0); EOS # 0.5 (0.0-0.7); GRAN # 6.91 (1.4-6.5); GRAN % 68.5 % (50.0-68.0); HEMOGLOBIN 10.8 gm/dL (14.0-18.0); LYMPH # 1.8 (1.2-3.4); LYMPH % 17.8 % (22.0-35.0); MEAN CELL VOLUME 77.2 fL (80.0-105.0); MEAN CORPUSCULAR HEMOGLOBIN 23.9 pg (25.0-35.0); MEAN PLATELET VOLUME 9.5 fl (7.0-11.0); MONO # 0.9 (0.1-0.6); MONO % 8.5 % (1.0-6.0); PLATELET COUNT 407 10^3/uL (120.0-450.0); RBC 4.51 10^6/uL (3.5-6.1); RED CELL DISTRIBUTION WIDTH 16.2 % (11.5-14.5); WHITE BLOOD COUNT 10.1 10^3/ul (4.5-11.0)
--- NOTE | 2016-10-14 08:34 | CP.PCM.PN ---
<Alex Chatman - Last Filed: 10/14/16 08:35> Subjective - Date & Time of Evaluation Date of Evaluation: 10/14/16 Time of Evaluation: 08:33 - Subjective Subjective: Gen Sx: Dr Cespedes Pt S&E. Doing well post-operatively. OOB and ambulating. Using incentive spirometer up to 2000cc. Tolerating CLD but minimal intake. Has not yet passed flatus. Blakes 10/80cc overnight Objective - Vital Signs/Intake and Output Vital Signs (last 24 hours): Temp Pulse Resp BP Pulse Ox 98.3 F 101 H 18 129/84 96 10/14/16 00:00 10/14/16 00:00 10/14/16 00:00 10/14/16 00:00 10/14/16 00:00 Intake and Output: 10/14/16 10/14/16 06:59 18:59 Intake Total 1490 Output Total 1180 Balance 310 - Medications Medications: Current Medications Amlodipine Besylate (Norvasc) 10 mg PO DAILY [facility] Last Admin: 10/13/16 09:37 Dose: 10 mg Diphenhydramine HCl (Benadryl) 50 mg IVP HS PRN PRN Reason: Insomnia Last Admin: 10/13/16 22:02 Dose: 50 mg Famotidine (Pepcid) 20 mg IVP DAILY [facility] Last Admin: 10/13/16 09:37 Dose: 20 mg Heparin Sodium (Porcine) (Heparin) 5,000 units SC Q12 ROCAEL PRN Reason: Protocol Last Admin: 10/13/16 21:35 Dose: 5,000 units Hydromorphone HCl (Dilaudid) 1 mg IVP Q3H PRN PRN Reason: Pain, severe (8-10) Last Admin: 10/14/16 03:39 Dose: 1 mg Piperacillin Sod/Tazobactam Sod (Zosyn 3.375 In Ns 100ml) 100 mls @ 200 mls/hr IVPB Q6 ROCAEL PRN Reason: Protocol Stop: 10/18/16 12:01 Last Admin: 10/14/16 05:15 Dose: 200 mls/hr Potassium Chloride 20 meq/ (Dextrose/Sodium Chloride) 1,010 mls @ 75 mls/hr IV .[id number] [facility] Last Admin: 10/13/16 22:02 Dose: 75 mls/hr Ondansetron HCl (Zofran Inj) 4 mg IVP Q6 PRN PRN Reason: Nausea/Vomiting Last Admin: 10/12/16 17:17 Dose: 4 mg Oxycodone/Acetaminophen (Percocet 5/325 Mg Tab) 2 tab PO Q4H PRN PRN Reason: Pain, moderate (4-7) Stop: 10/16/16 16:55 - Labs Labs: 10/14/16 07:00 10/14/16 07:00 PT 11.1 Seconds (9.9-11.8) 10/08/16 10:41 INR 1.03 (0.93-1.08) 10/08/16 10:41 APTT 28.2 Seconds (23.7-30.8) 10/08/16 10:41 - Constitutional Appears: Non-toxic, No Acute Distress - Head Exam Head Exam: NORMOCEPHALIC - Eye Exam Eye Exam: EOMI - ENT Exam ENT Exam: Normal Exam - Respiratory Exam Respiratory Exam: absent: Accessory Muscle Use, Respiratory Distress - Cardiovascular Exam Cardiovascular Exam: REGULAR RHYTHM. absent: Tachycardia - GI/Abdominal Exam GI & Abdominal Exam: Soft, Tenderness. absent: Distended, Firm, Guarding, Rigid Additional comments: midline incision c/d/i román dressing changed at bedside output 10/80 overnight - Extremities Exam Extremities Exam: absent: Calf Tenderness, Pedal Edema - Neurological Exam Neurological Exam: Alert, Awake, Oriented x3 - Psychiatric Exam Psychiatric exam: Normal Affect, Normal Mood - Skin Skin Exam: Normal Color, Warm Assessment and Plan - Assessment and Plan (Free Text) Assessment: 51M POD#3 s/p LAR w/ primary bladder repair for colon ca Plan: Cont to encourage ambulation and IS use transition to PO pain control - percocet ordered - can keep Dilaudid for breakthrough awaiting pt to pass flatus - will adv to regular diet then potential D/C tomorrow pending bowel function will remove lyman prior to D/C f/u path will d/w Dr Rubina Chatman, PGY3 <Mik Cespedes - Last Filed: 10/29/16 00:22> Objective - Vital Signs/Intake and Output Vital Signs (last 24 hours): Temp Pulse Resp BP Pulse Ox 100 F H 75 18 131/91 H 96 10/15/16 08:46 10/15/16 08:46 10/15/16 08:46 10/15/16 09:20 10/15/16 08:46 - Labs Labs: 10/15/16 06:40 10/15/16 06:40 PT 11.1 Seconds (9.9-11.8) 10/08/16 10:41 INR 1.03 (0.93-1.08) 10/08/16 10:41 APTT 28.2 Seconds (23.7-30.8) 10/08/16 10:41 Assessment and Plan - Assessment and Plan (Free Text) Plan: Patient was seen and examined by me. I agree with assessment and plan as per resident's note.
--- NOTE | 2016-10-14 11:09 | CP.PCM.PN ---
Subjective - Date & Time of Evaluation Date of Evaluation: 10/14/16 Time of Evaluation: 07:20 - Subjective Subjective: Subjective: Patient seen and examined at bedside on the general medical roland. No acute events overnight. He remains afebrile and hemodynamically stable and is doing well post-operatively. The pain is well controlled, he is tolerating liquid diet and largely offers no complaints. Objective: VS: T 98.8, P 90, BP 123/81, RR 18, O2 96% on RA Gen: NAD HEENT: PERRL, EOMI, no scleral icterus, no conjunctival pallor Neck: No JVD Lungs: CTA CV: RRR, no m/r/g Abd: obese, NABS, soft, (+) tender to palpation at surgical site with voluntary guarding with site appearing c/d/i, (+) drains in place Ext: no c/c/e Neuro: AAOx3, no focal motor deficits Laboratory Data: WBC 10.1 with 69% neutrophils, Hb 10.8, Hct 34.8, Plt 407, MCV 77 CMP reviewed and largely unremarkable Blood cultures negative to date. Urine culture negative to date. Abdominal abscess culture with GNR Assessment: The patient is a 51 yo man with newly diagnosed adenocarcinoma of the sigmoid colon who is s/p ex-lap with lower anterior resection of colon with drainage of intra-abdominal abscess and repair of bladder wall POD #3 Plan: 1. Stage III adenocarcinoma of the sigmoid colon s/p ex-lap with surgical resection POD #3. Continue with postoperative care as per Dr. Reynolds and the surgical team. Input from Dr. Fields noted and appreciated and the patient will likely require chemotherapy postoperatively given PET scan findings demonstrating Stage III malignancy 2. HTN. BP controlled, continue with Norvasc 10mg PO QD 3. Iron deficiency anemia. Input from Dr. Fields appreciated and patient as received IV iron infusions. Continue to monitor CBC daily 4. Prophylaxis. Continue with Pepcid for GI prophylaxis. Continue with Heparin for DVT prophylaxis Code Status: Full Code Objective - Vital Signs/Intake and Output Vital Signs (last 24 hours): Temp Pulse Resp BP Pulse Ox 98.8 F 90 18 123/81 96 10/14/16 06:00 10/14/16 06:00 10/14/16 06:00 10/14/16 10:09 10/14/16 06:00 Intake and Output: 10/14/16 10/14/16 06:59 18:59 Intake Total 1490 Output Total 1180 Balance 310 - Medications Medications: Current Medications Amlodipine Besylate (Norvasc) 10 mg PO DAILY [facility] Last Admin: 10/14/16 10:09 Dose: 10 mg Diphenhydramine HCl (Benadryl) 50 mg IVP HS PRN PRN Reason: Insomnia Last Admin: 10/13/16 22:02 Dose: 50 mg Famotidine (Pepcid) 20 mg IVP DAILY [facility] Last Admin: 10/14/16 10:04 Dose: 20 mg Heparin Sodium (Porcine) (Heparin) 5,000 units SC Q12 ROCAEL PRN Reason: Protocol Last Admin: 10/14/16 10:04 Dose: 5,000 units Hydromorphone HCl (Dilaudid) 1 mg IVP Q3H PRN PRN Reason: Pain, severe (8-10) Last Admin: 10/14/16 09:01 Dose: 1 mg Piperacillin Sod/Tazobactam Sod (Zosyn 3.375 In Ns 100ml) 100 mls @ 200 mls/hr IVPB Q6 ROCAEL PRN Reason: Protocol Stop: 10/18/16 12:01 Last Admin: 10/14/16 05:15 Dose: 200 mls/hr Potassium Chloride 20 meq/ (Dextrose/Sodium Chloride) 1,010 mls @ 75 mls/hr IV .[id number] [facility] Last Admin: 10/13/16 22:02 Dose: 75 mls/hr Ondansetron HCl (Zofran Inj) 4 mg IVP Q6 PRN PRN Reason: Nausea/Vomiting Last Admin: 10/12/16 17:17 Dose: 4 mg Oxycodone/Acetaminophen (Percocet 5/325 Mg Tab) 2 tab PO Q4H PRN PRN Reason: Pain, moderate (4-7) Stop: 10/16/16 16:55 - Labs Labs: 10/14/16 07:00 10/14/16 07:00 PT 11.1 Seconds (9.9-11.8) 10/08/16 10:41 INR 1.03 (0.93-1.08) 10/08/16 10:41 APTT 28.2 Seconds (23.7-30.8) 10/08/16 10:41
[2016-10-14] MEDS: Potassium Chloride 20 MEQ in Dextrose 5%/0.45% NS 1,000 ML IV SCH (12:58)
--- NOTE | 2016-10-14 13:41 | CP.PCM.PN ---
Subjective - Date & Time of Evaluation Date of Evaluation: 10/14/16 Time of Evaluation: 12:10 - Subjective Subjective: Comfortable, afebrile, no abdominal pain. Objective - Vital Signs/Intake and Output Vital Signs (last 24 hours): Temp Pulse Resp BP Pulse Ox 98.3 F 101 H 18 129/84 96 10/14/16 00:00 10/14/16 00:00 10/14/16 00:00 10/14/16 00:00 10/14/16 00:00 Intake and Output: 10/14/16 10/14/16 06:59 18:59 Intake Total 1490 Output Total 1180 Balance 310 - Medications Medications: Current Medications Amlodipine Besylate (Norvasc) 10 mg PO DAILY [facility] Last Admin: 10/13/16 09:37 Dose: 10 mg Diphenhydramine HCl (Benadryl) 50 mg IVP HS PRN PRN Reason: Insomnia Last Admin: 10/13/16 22:02 Dose: 50 mg Famotidine (Pepcid) 20 mg IVP DAILY [facility] Last Admin: 10/13/16 09:37 Dose: 20 mg Heparin Sodium (Porcine) (Heparin) 5,000 units SC Q12 ROCAEL PRN Reason: Protocol Last Admin: 10/13/16 21:35 Dose: 5,000 units Hydromorphone HCl (Dilaudid) 1 mg IVP Q3H PRN PRN Reason: Pain, severe (8-10) Last Admin: 10/14/16 03:39 Dose: 1 mg Piperacillin Sod/Tazobactam Sod (Zosyn 3.375 In Ns 100ml) 100 mls @ 200 mls/hr IVPB Q6 ROCAEL PRN Reason: Protocol Stop: 10/18/16 12:01 Last Admin: 10/14/16 05:15 Dose: 200 mls/hr Potassium Chloride 20 meq/ (Dextrose/Sodium Chloride) 1,010 mls @ 75 mls/hr IV .[id number] [facility] Last Admin: 10/13/16 22:02 Dose: 75 mls/hr Ondansetron HCl (Zofran Inj) 4 mg IVP Q6 PRN PRN Reason: Nausea/Vomiting Last Admin: 10/12/16 17:17 Dose: 4 mg Oxycodone/Acetaminophen (Percocet 5/325 Mg Tab) 2 tab PO Q4H PRN PRN Reason: Pain, moderate (4-7) Stop: 10/16/16 16:55 - Labs Labs: 10/13/16 07:00 10/13/16 07:00 PT 11.1 Seconds (9.9-11.8) 10/08/16 10:41 INR 1.03 (0.93-1.08) 10/08/16 10:41 APTT 28.2 Seconds (23.7-30.8) 10/08/16 10:41 - Constitutional Appears: Non-toxic, No Acute Distress - Head Exam Head Exam: NORMAL INSPECTION - ENT Exam ENT Exam: Mucous Membranes Moist - Neck Exam Neck Exam: absent: Lymphadenopathy, Meningismus - Respiratory Exam Respiratory Exam: Decreased Breath Sounds - Cardiovascular Exam Cardiovascular Exam: +S1, +S2 - GI/Abdominal Exam GI & Abdominal Exam: Soft. 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
[2016-10-15] MEDS: DiphenhydrAMINE 50 mg/ml Inj IVP PRN (01:02)
[2016-10-15] MEDS: Potassium Chloride 20 MEQ in Dextrose 5%/0.45% NS 1,000 ML IV SCH (04:19)
[2016-10-15] MEDS: Piperacillin/Tazobact 3.375 gm 100 ML IVPB SCH ×2 (05:19→11:05)
[2016-10-15 07:22] LABS: BASO # 0.05 K/mm3 (0.0-2.0); BASO % 0.7 % (0.0-3.0); EOS # 0.6 (0.0-0.7); EOS % 8.3 % (1.5-5.0); GRAN # 4.66 (1.4-6.5); GRAN % 61.3 % (50.0-68.0); HEMOGLOBIN 10.6 gm/dL (14.0-18.0); LYMPH # 1.6 (1.2-3.4); LYMPH % 20.5 % (22.0-35.0); MEAN CELL VOLUME 76.6 fL (80.0-105.0); MEAN CORPUSCULAR HEMOGLOBIN 23.6 pg (25.0-35.0); MEAN CORPUSCULAR HGB CONC 30.8 g/dl (31.0-37.0); MEAN PLATELET VOLUME 9.5 fl (7.0-11.0); MONO # 0.7 (0.1-0.6); MONO % 9.2 % (1.0-6.0); PLATELET COUNT 384 10^3/uL (120.0-450.0); RBC 4.49 10^6/uL (3.5-6.1); RED CELL DISTRIBUTION WIDTH 16.1 % (11.5-14.5); WHITE BLOOD COUNT 7.6 10^3/ul (4.5-11.0)
[2016-10-15 07:48] LABS: ALB/GLOB RATIO 0.9 (1.1-1.8); ALBUMIN 3.1 g/dL (3.0-4.8); ALT/SGPT 35 U/L (7-56); AST/SGOT 34 U/L (15-59); BLOOD UREA NITROGEN 6 mg/dL (7-21); CALCIUM 8.4 mg/dL (8.4-10.5); GFR AFRICAN-AMERICAN > 60; GFR NON-AFRICAN AMERICAN > 60
--- NOTE | 2016-10-15 08:33 | CP.PCM.PN ---
Subjective - Date & Time of Evaluation Date of Evaluation: 10/15/16 Time of Evaluation: 08:10 - Subjective Subjective: Subjective: Patient seen and examined at bedside on the general medical roland. No acute events overnight. He remains afebrile and hemodynamically stable and continues to recover nicely post-operatively. He is tolerating oral intake and this morning offers no complaints. Objective: VS: T 98.5, P 74, BP 146/90, RR 18, O2 96% on RA Gen: NAD HEENT: PERRL, EOMI, no scleral icterus, no conjunctival pallor Neck: No JVD Lungs: CTA CV: RRR, no m/r/g Abd: obese, NABS, soft, (+) tender to palpation at surgical site with voluntary guarding with site appearing c/d/i Ext: no c/c/e Neuro: AAOx3, no focal motor deficits Laboratory Data: WBC 7.6, Hb 10.6, Hct 34, Plt 384 CMP reviewed and largely unremarkable Blood cultures negative to date. Urine culture negative to date Abdominal abscess culture with E. coli Assessment: The patient is a 51 yo man with newly diagnosed adenocarcinoma of the sigmoid colon who is s/p ex-lap with lower anterior resection of colon with drainage of intra-abdominal abscess and repair of bladder wall POD #4 Plan: 1. Stage III adenocarcinoma of the sigmoid colon s/p ex-lap with surgical resection POD #4. Continue with postoperative care as per Dr. Reynolds and the surgical team. Input from Dr. Fields noted and appreciated and the patient will likely require chemotherapy postoperatively given PET scan findings demonstrating Stage III malignancy 2. HTN. Continue with Norvasc 10mg PO QD 3. Iron deficiency anemia. Input from Dr. Fields appreciated and patient as received IV iron infusions. Continue to monitor CBC daily 4. Prophylaxis. Continue with Pepcid for GI prophylaxis. Continue with Heparin for DVT prophylaxis Code Status: Full Code Objective - Vital Signs/Intake and Output Vital Signs (last 24 hours): Temp Pulse Resp BP Pulse Ox 98.5 F 74 18 146/90 97 10/15/16 00:00 10/15/16 00:00 10/15/16 00:00 10/15/16 00:00 10/15/16 00:00 Intake and Output: 10/15/16 10/15/16 06:59 18:59 Intake Total 1370 Output Total 2500 Balance -1130 - Medications Medications: Current Medications Amlodipine Besylate (Norvasc) 10 mg PO DAILY [facility] Last Admin: 10/14/16 10:09 Dose: 10 mg Diphenhydramine HCl (Benadryl) 50 mg IVP HS PRN PRN Reason: Insomnia Last Admin: 10/15/16 01:02 Dose: 50 mg Famotidine (Pepcid) 20 mg IVP DAILY [facility] Last Admin: 10/14/16 10:04 Dose: 20 mg Heparin Sodium (Porcine) (Heparin) 5,000 units SC Q12 ROCAEL PRN Reason: Protocol Last Admin: 10/14/16 21:26 Dose: 5,000 units Piperacillin Sod/Tazobactam Sod (Zosyn 3.375 In Ns 100ml) 100 mls @ 200 mls/hr IVPB Q6 ROCAEL PRN Reason: Protocol Stop: 10/18/16 12:01 Last Admin: 10/15/16 05:19 Dose: 200 mls/hr Ketorolac Tromethamine (Toradol) 30 mg IVP Q6 [facility] Stop: 10/16/16 12:01 Last Admin: 10/15/16 05:20 Dose: 30 mg Ondansetron HCl (Zofran Inj) 4 mg IVP Q6 PRN PRN Reason: Nausea/Vomiting Last Admin: 10/12/16 17:17 Dose: 4 mg Oxycodone/Acetaminophen (Percocet 5/325 Mg Tab) 2 tab PO Q4H PRN PRN Reason: Pain, moderate (4-7) Stop: 10/16/16 16:55 - Labs Labs: 10/15/16 06:40 10/15/16 06:40 PT 11.1 Seconds (9.9-11.8) 10/08/16 10:41 INR 1.03 (0.93-1.08) 10/08/16 10:41 APTT 28.2 Seconds (23.7-30.8) 10/08/16 10:41
[2016-10-15 08:46] VITALS: BP 131/91; PULSE 75; TEMP 100; O2SAT 96
--- NOTE | 2016-10-15 10:03 | CP.PCM.PN ---
Subjective - Date & Time of Evaluation Date of Evaluation: 10/15/16 Time of Evaluation: 10:00 - Subjective Subjective: PT S&E NAEON. Patient is tolerating pain. Patient denies flatus or bowel movements. Objective - Vital Signs/Intake and Output Vital Signs (last 24 hours): Temp Pulse Resp BP Pulse Ox 100 F H 75 18 131/91 H 96 10/15/16 08:46 10/15/16 08:46 10/15/16 08:46 10/15/16 09:20 10/15/16 08:46 Intake and Output: 10/15/16 10/15/16 06:59 18:59 Intake Total 1370 Output Total 2500 Balance -1130 - Medications Medications: Current Medications Amlodipine Besylate (Norvasc) 10 mg PO DAILY [facility] Last Admin: 10/15/16 09:20 Dose: 10 mg Diphenhydramine HCl (Benadryl) 50 mg IVP HS PRN PRN Reason: Insomnia Last Admin: 10/15/16 01:02 Dose: 50 mg Famotidine (Pepcid) 20 mg IVP DAILY [facility] Last Admin: 10/15/16 09:20 Dose: 20 mg Heparin Sodium (Porcine) (Heparin) 5,000 units SC Q12 ROCAEL PRN Reason: Protocol Last Admin: 10/15/16 09:20 Dose: 5,000 units Piperacillin Sod/Tazobactam Sod (Zosyn 3.375 In Ns 100ml) 100 mls @ 200 mls/hr IVPB Q6 ROCAEL PRN Reason: Protocol Stop: 10/18/16 12:01 Last Admin: 10/15/16 05:19 Dose: 200 mls/hr Ketorolac Tromethamine (Toradol) 30 mg IVP Q6 [facility] Stop: 10/16/16 12:01 Last Admin: 10/15/16 05:20 Dose: 30 mg Ondansetron HCl (Zofran Inj) 4 mg IVP Q6 PRN PRN Reason: Nausea/Vomiting Last Admin: 10/12/16 17:17 Dose: 4 mg Oxycodone/Acetaminophen (Percocet 5/325 Mg Tab) 2 tab PO Q4H PRN PRN Reason: Pain, moderate (4-7) Stop: 10/16/16 16:55 - Labs Labs: 10/15/16 06:40 10/15/16 06:40 PT 11.1 Seconds (9.9-11.8) 10/08/16 10:41 INR 1.03 (0.93-1.08) 10/08/16 10:41 APTT 28.2 Seconds (23.7-30.8) 10/08/16 10:41 - Constitutional Appears: Well - Head Exam Head Exam: NORMAL INSPECTION - Eye Exam Eye Exam: EOMI, Normal appearance - ENT Exam ENT Exam: Mucous Membranes Moist - Neck Exam Neck Exam: Full ROM, Normal Inspection - Respiratory Exam Respiratory Exam: NORMAL BREATHING PATTERN. absent: Accessory Muscle Use, Clear to Ausculation Bilateral, Respiratory Distress, Stridor - Cardiovascular Exam Cardiovascular Exam: REGULAR RHYTHM. absent: Bradycardia, Tachycardia - GI/Abdominal Exam GI & Abdominal Exam: Distended, Hypoactive Bowel Sounds. absent: Firm, Guarding , Rigid - Neurological Exam Neurological Exam: Alert, Awake, Normal Gait, Oriented x3 - Skin Skin Exam: Dry, Intact, Normal Color, Warm Assessment and Plan - Assessment and Plan (Free Text) Assessment: 51 M presents with colon CA, perforation and abscess s/p LAR with primary anastomosis and bladder repair POD#4. Plan: c/w antibiotics. Monitor for flatus and BM Strict I/Os (Conor x2 and Xiao) FLD DVT and GI prophylaxis c/w pain management
--- NOTE | 2016-10-15 17:48 | CP.PCM.PN ---
Subjective - Date & Time of Evaluation Date of Evaluation: 10/15/16 Time of Evaluation: 12:00 - Subjective Subjective: Comfortable, tolerating solid foods, no diarrhea, no fevers overnight. Objective - Vital Signs/Intake and Output Vital Signs (last 24 hours): Temp Pulse Resp BP Pulse Ox 100 F H 75 18 131/91 H 96 10/15/16 08:46 10/15/16 08:46 10/15/16 08:46 10/15/16 09:20 10/15/16 08:46 Intake and Output: 10/15/16 10/15/16 06:59 18:59 Intake Total 1370 Output Total 2500 Balance -1130 - Medications Medications: Current Medications Amlodipine Besylate (Norvasc) 10 mg PO DAILY [facility] Last Admin: 10/15/16 09:20 Dose: 10 mg Diphenhydramine HCl (Benadryl) 50 mg IVP HS PRN PRN Reason: Insomnia Last Admin: 10/15/16 01:02 Dose: 50 mg Famotidine (Pepcid) 20 mg IVP DAILY [facility] Last Admin: 10/15/16 09:20 Dose: 20 mg Heparin Sodium (Porcine) (Heparin) 5,000 units SC Q12 ROCAEL PRN Reason: Protocol Last Admin: 10/15/16 09:20 Dose: 5,000 units Piperacillin Sod/Tazobactam Sod (Zosyn 3.375 In Ns 100ml) 100 mls @ 200 mls/hr IVPB Q6 ROCAEL PRN Reason: Protocol Stop: 10/18/16 12:01 Last Admin: 10/15/16 11:05 Dose: 200 mls/hr Ketorolac Tromethamine (Toradol) 30 mg IVP Q6 [facility] Stop: 10/16/16 12:01 Last Admin: 10/15/16 11:06 Dose: 30 mg Ondansetron HCl (Zofran Inj) 4 mg IVP Q6 PRN PRN Reason: Nausea/Vomiting Last Admin: 10/12/16 17:17 Dose: 4 mg Oxycodone/Acetaminophen (Percocet 5/325 Mg Tab) 2 tab PO Q4H PRN PRN Reason: Pain, moderate (4-7) Stop: 10/16/16 16:55 - Labs Labs: 10/15/16 06:40 10/15/16 06:40 PT 11.1 Seconds (9.9-11.8) 10/08/16 10:41 INR 1.03 (0.93-1.08) 10/08/16 10:41 APTT 28.2 Seconds (23.7-30.8) 10/08/16 10:41 - Constitutional Appears: Non-toxic, No Acute Distress - Head Exam Head Exam: NORMAL INSPECTION - ENT Exam ENT Exam: Mucous Membranes Moist - Neck Exam Neck Exam: absent: Lymphadenopathy, Meningismus - Respiratory Exam Respiratory Exam: Decreased Breath Sounds - Cardiovascular Exam Cardiovascular Exam: +S1, +S2 - GI/Abdominal Exam GI & Abdominal Exam: Soft. 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 coli Obesity with BMI 39 Plan can change Zosyn to Augmentin for another 3-5 days with outpatient follow up with PMD and Surgery
--- NOTE | 2016-10-16 09:09 | CP.PCM.DIS ---
Provider - Provider Date of Admission: 10/09/16 11:57 Attending physician: Romaine Erickson MD Primary care physician: Romaine Erickson MD Consults: Dr. Parker (infectious disease), Dr. Kilgore (urology), Dr. Fields (hematology/ oncology), Dr. Horn (general surgery), Dr. Bernard (general surgery) Time Spent in preparation of Discharge (in minutes): 35 Hospital Course - Lab Results Lab Results: Micro Results 10/11/16 15:09 Abdomen Gram Stain - Final 10/11/16 15:09 Abdomen Wound Culture - Final Escherichia Coli 10/09/16 14:25 Blood Blood Culture - Final NO GROWTH AFTER 5 DAYS 10/09/16 14:25 Blood Gram Stain - Final TEST NOT PERFORMED 10/09/16 14:25 Blood Blood Culture - Final NO GROWTH AFTER 5 DAYS 10/09/16 14:25 Blood Gram Stain - Final TEST NOT PERFORMED 10/11/16 15:10 Peritoneal Fluid Anaerobic Culture - Final NO ANAEROBES ISOLATED. 10/10/16 00:00 Urine Urine Culture - Final No Growth (<1,000 CFU/ML) Most Recent Lab Values WBC 7.6 10^3/ul (4.5-11.0) D 10/15/16 06:40 RBC 4.49 10^6/uL (3.5-6.1) 10/15/16 06:40 Hgb 10.6 gm/dL (14.0-18.0) L 10/15/16 06:40 Hct 34.4 % (42.0-52.0) L 10/15/16 06:40 MCV 76.6 fL (80.0-105.0) L 10/15/16 06:40 MCH 23.6 pg (25.0-35.0) L 10/15/16 06:40 MCHC 30.8 g/dl (31.0-37.0) L 10/15/16 06:40 RDW 16.1 % (11.5-14.5) H 10/15/16 06:40 Plt Count 384 10^3/uL (120.0-450.0) 10/15/16 06:40 MPV 9.5 fl (7.0-11.0) 10/15/16 06:40 Gran % 61.3 % (50.0-68.0) 10/15/16 06:40 Lymph % (Auto) 20.5 % (22.0-35.0) L 10/15/16 06:40 Laurens % (Auto) 9.2 % (1.0-6.0) H 10/15/16 06:40 Eos % (Auto) 8.3 % (1.5-5.0) H 10/15/16 06:40 Baso % (Auto) 0.7 % (0.0-3.0) 10/15/16 06:40 Gran # 4.66 (1.4-6.5) 10/15/16 06:40 Lymph # 1.6 (1.2-3.4) 10/15/16 06:40 Laurens # 0.7 (0.1-0.6) H 10/15/16 06:40 Eos # 0.6 (0.0-0.7) 10/15/16 06:40 Baso # 0.05 K/mm3 (0.0-2.0) 10/15/16 06:40 PT 11.1 Seconds (9.9-11.8) 10/08/16 10:41 INR 1.03 (0.93-1.08) 10/08/16 10:41 APTT 28.2 Seconds (23.7-30.8) 10/08/16 10:41 Sodium 139 mmol/L (132-148) 10/15/16 06:40 Potassium 3.6 mmol/L (3.6-5.0) 10/15/16 06:40 Chloride 104 mmol/L (98-107) 10/15/16 06:40 Carbon Dioxide 26 mmol/L (21-33) 10/15/16 06:40 Anion Gap 13 (10-20) 10/15/16 06:40 BUN 6 mg/dL (7-21) L 10/15/16 06:40 Creatinine 1.0 mg/dL (0.5-1.4) 10/15/16 06:40 Est GFR ( Amer) > 60 10/15/16 06:40 Est GFR (Non-Af Amer) > 60 10/15/16 06:40 Random Glucose 101 mg/dL (70-110) 10/15/16 06:40 Calcium 8.4 mg/dL (8.4-10.5) 10/15/16 06:40 Total Bilirubin 0.7 mg/dL (0.2-1.3) 10/15/16 06:40 AST 34 U/L (15-59) 10/15/16 06:40 ALT 35 U/L (7-56) 10/15/16 06:40 Alkaline Phosphatase 43 U/L (38-133) 10/15/16 06:40 Total Protein 6.6 g/dL (5.8-8.3) 10/15/16 06:40 Albumin 3.1 g/dL (3.0-4.8) 10/15/16 06:40 Globulin 3.4 gm/dL 10/15/16 06:40 Albumin/Globulin Ratio 0.9 (1.1-1.8) L 10/15/16 06:40 HIV 1&2 Ag/Ab, 4th Gen Nonreactive (Nonreactive) 10/09/16 11:40 Blood Type A NEGATIVE 10/08/16 11:23 Blood Type Confirm A NEGATIVE 10/08/16 11:53 Antibody Screen Positive 10/08/16 11:23 Antibody Identification Negative Panel 10/08/16 11:23 BBK History Checked No verified bt 10/08/16 11:23 - Hospital Course Hospital Course: Admitting Diagnosis: 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 Parker (infectious disease), Dr. Kilgore (urology), Dr. Fields (hematology/ oncology), Dr. Melvin (general surgery), Dr. Bernard (general surgery) Procedures: Exploratory laparotomy with lower anterior resection of the sigmoid colon and bladder wall repair Imaging Studies: CT of the abdomen and pelvis which demonstrated a mass to the sigmoid colon History of Present Illness: The patient is a 51 yo man with newly diagnosed adenocarcinoma of the sigmoid colon who presented to [facility] at the advise of Dr. Fields ( hematology/oncology) after undergoing a PET scan for staging purposes which demonstrated findings suggestive of bowel perforation and colovesical fistula formation. The patient denied any complaints such as abdominal pain, abdominal distension, hematuria, dysuria or pneumaturia. Furthermore he was tolerating oral intake with no adverse symptoms. Upon arrival to the ED he was noted to be afebrile and hemodynamically stable. Routine lab studies were largely unremarkable and a CT of the abdomen and pelvis demonstrated the sigmoid lesion but no evidence of perforation. The patient was subsequently admitted to the general [facility] for continued management and surgical evaluation. Hospital Course: Upon admission to the [facility] the patient was evaluated by Dr. Bernard (covering for Dr. Melvin). After reviewing the CT of the abdomen/ pelvis it was deemed that the patient did not have a perforation and thus surgery was deferred for 36 hrs so as to hydrate the patient and initiate antibiotic therapy. Dr. Parker evaluated the patient and started him on Zosyn pre-operatively. The patient was tolerating oral intake and having normal bowel movements prior to his operation. On hospital day #2 he was taken to the OR where he underwent successful resection of the colon and repair of the bladder wall. An abscess was also noted which was surgically drained and sent for cultures. The patient's post-operative course was unremarkable. His diet was advanced without difficulty and he was passing flatus and moving his bowels. His pain was adequately controlled on his analgesic regimen and by hospital day #6 he was deemed stable for discharge to home. Condition: Good, improved Disposition: To home Discharge Medications: Ciprofloxacin 500mg PO BID (to complete 2 week course), Flagyl 500mg PO TID (to complete 2 week course), Norvasc 10mg PO QD and Percocet 5/325mg PO Q 4-6 hrs prn pain Discharge Instructions: Patient to adhere to post-operative instructions as advised by Dr. Melvin and the surgical team. Patient advised to present to his PMD or to the nearest ED if any development of fevers, chills, rigors, abdominal pain, erythema or discharge from his surgical site. Follow-up: Patient to follow up with his PMD within 1 week of discharge. Patient to follow up with Dr. Melvin as scheduled. Patient to follow up with Dr. Fields as scheduled. Discharge Exam - Head Exam Head Exam: NORMAL INSPECTION Discharge Plan - Discharge Medications Prescriptions: Ciprofloxacin [Cipro] 500 mg PO BID #14 tab Metronidazole [Flagyl] 500 mg PO BID #14 tab traMADol [Ultram] 50 mg PO Q6H PRN #20 tab PRN Reason: Pain, Moderate (4-7) - Follow Up Plan Condition: STABLE Disposition: HOME/ ROUTINE Instructions: Colorectal Cancer (DC) Additional Instructions: Continue regular diet and light activities. Continue Antibiotics as prescribed. Take pain medicine as prescribed, as needed for pain. NO HEAVY LIFTING >10LBS for 4 weeks You may shower, no bathing or soaking in the tub/ocean/pool. Apply 4x4 dressing to lower abdomen to prevent skin rubbing. You may remove the dressing over prior drain site in 2 days and replace with a bandaid or 4x4 dressing daily until closed. Follow up in office w/ Dr. Cespedes in 2 weeks. Referrals: Dre GOODEN,Romaine Cho MD [Primary Care Provider] - Willie Kilgore MD [Staff Provider] -
--- NOTE | 2016-10-18 12:29 | CP.PCM.PN ---
Subjective - Date & Time of Evaluation Date of Evaluation: 10/09/16 - Subjective Subjective: Patient is to be seen by Dr. Parker. Objective - Vital Signs/Intake and Output Vital Signs (last 24 hours): Temp Pulse Resp BP Pulse Ox 100 F H 75 18 131/91 H 96 10/15/16 08:46 10/15/16 08:46 10/15/16 08:46 10/15/16 09:20 10/15/16 08:46 - Labs Labs: 10/15/16 06:40 10/15/16 06:40 PT 11.1 Seconds (9.9-11.8) 10/08/16 10:41 INR 1.03 (0.93-1.08) 10/08/16 10:41 APTT 28.2 Seconds (23.7-30.8) 10/08/16 10:41 Assessment and Plan - Assessment and Plan (Free Text) Plan: Will resume the antibiotics. Stat dose has been given, but no follow up. Plan on following a bowel prep which is beginning now.
--- NOTE | 2016-10-25 11:11 | OP ---
DATE OF OPERATION: 10/11/2016 PREOPERATIVE DIAGNOSES: Colon cancer and intraabdominal abscess. POSTOPERATIVE DIAGNOSES: Colon cancer and intraabdominal abscess. PROCEDURES PERFORMED: 1. Low anterior resection of the rectosigmoid. 2. Drainage of intraabdominal abscess. 3. Splenic flexure mobilization. SURGEON: Dr. Cespedes. ASSISTANTS: Dr. Vance and Dr. Nuno. ANESTHESIA: General endotracheal. ANESTHESIOLOGIST: Dr. Livingston. ESTIMATED BLOOD LOSS: 50 mL. SPECIMENS: Rectosigmoid colon, cultures from abscess, and fragments of abscess. INDICATIONS: The patient is a 51-year-old male with history of abdominal pain and discomfort, who had a CT scan revealing presence of a large colonic mass with suspected abscess in the area of the dome of the bladder. The patient subsequently had a colonoscopy revealing presence of the large mass within the colon and biopsy showed presence of adenocarcinoma of colon. The patient was scheduled for colon resection, abscess drainage, and possible repair of the bladder. Dr. Stark will be dictating a separate report regarding his dealing with bladder repair post colon resection. DESCRIPTION OF PROCEDURE: The patient was brought to the operating room and placed on operating table in the supine position. The patient was connected to EKG, blood pressure, and pulse oximetry monitors. The patient then underwent general endotracheal anesthesia, was prepped and draped in usual sterile fashion. Using a #15-blade, an incision was made in the midline extending from mid epigastric area down to the symphysis pubis and careful dissection was done through the subcutaneous fascia until access to the abdominal cavity was obtained. Once this was done, careful evaluation of abdominal cavity revealed presence of thickened colon stuck to the top of the bladder dome and adjacent inflammation. At this point, the Bookwalter retractor was installed in place and the small bowel was pushed back with laps and from the area of the dissection of the colon. Once the sigmoid colon entering into the pelvis was the only structure left in field, I then carefully proceeded with the dissection of the colon to take it off the bladder dome. After a tedious dissection, we were able to finally detach it and elevate it from the bladder. In the process, it appeared that there was an abscess cavity between the colon and the dome of the bladder. Because the area was adjacent to the colon cancer, I proceeded with multiple biopsies of the bladder wall and sent those as a specimen to rule out presence of cancer. Due to the abscess and erosion into the bladder wall, I requested Dr. Stark's intraoperative consultation in addition to his placement of the urethral stent to evaluate the bladder wall which he subsequently repaired and will dictate in his own report. I then further proceeded with mobilization of the rectum down to the mid portion of the rectum and at this point proceeded with transecting the mesorectum and exposing the rectal wall. This part of the rectum was brought up after mobilization to have adequate length for [id number] anastomosis. Once this was done, I then proceeded with mobilization of the mesentery of the descending colon and once fully mobilized all the way through the splenic flexure which was able mobilized, I was able to bring down adequate length of the colon in order to be able to bring it down to the pelvis for the anastomosis. Once this was done, the specimen was transected about 20 cm proximal to the lesion and the mesentery adjacent to that portion of the colon was also resected all the way down to its root involving the lymph nodes adjacent to it. Once this was done, the abdominal cavity was copiously irrigated and there was excellent hemostasis. I then proceeded with creation of the [id number] anastomosis deep down in the pelvis between the rectum and the descending colon which was earlier immobilized. This was done using ERASMO and TA staplers. The abdominal cavity was now copiously irrigated. There was excellent hemostasis noted. The Conor drain was placed into the area of the pelvis near the anastomosis and pushed along the left pericolic gutter. The abdominal cavity was now closed in layers using #1 PDS for the fascia, 3-0 Vicryl for the subcutaneous tissue, and surgical isabel for skin. Sterile dressing was applied to the wound. The patient was awakened, extubated, and transferred to recovery room for further observation. Mik Cespedes MD
--- NOTE | 2016-10-31 11:41 | PCM.OP ---
Operative Report - Operative Report Date of Surgery/Procedure: 10/11/16 Surgeon: Dr. Gera [facility] Specialist: Dr. Cespedes Procedure/Operation Description: Second Portion of Operative Report: I was asked to scrub back in to inspect the bladder after the tumor has been removed by Dr. Cespedes at General Surgery. Upon scrubbing bag into the case, the bladder was tanked filled with defined blue, and fully distended. There was a small area where the tumor had been dissected out from the bladder which appear to be weaken. There were no leaks noted. At this point I was able to inbricate the area with two stitches of 2-0 Vicryl to strengthen the bladder wall. The bladder was deflated and inflated again, there was no leakage noted. At this point I scrubbed out and Dr. Cespedes continued with the surgical resonance to finish the colon resection and closure. I discussed postoperative care with Dr. Cespedes and the resident, the lyman catheter will be left indwelling while the patient is recovering from surgery. We were planning a voiding trial after approximately one week to allow adequate bladder healing.
--- NOTE | 2016-10-31 15:44 | CONS ---
This is Dr. Bernard dictating on a Pj Reyes. I saw the patient in the emergency room on 10/09/2016 for the first time at the request of Dr. Cespedes who is away. This patient had a planned operation on with Dr. Cespedes at the [facility]. However the primary care oncologist had a report of a PET scan showing a fluid collection, possible perforation, probable fistula in this area, as referred to the emergency room. After discussion with Dr. Fields the oncologist and reviewing the films patient was admitted for IV antibiotics. Patient known to be 51 y/o. Was known to have pain in the left lower quadrant. Denies blood or mucous. A colonoscopy was done at [facility] with Dr. Yuan Thompson, failed to review a carcinoma. His past surgical history is negative. Allergies none except for tree nut which gives anaphylaxis. No medications at home. ROS is healthy without chest pain or shortness of breath, PND or apnea, loss of vision, headaches, diaphoresis, anxiety, depression.Did not lose weight. In the emergency with a CAT scan, EKG etc... Patient will be admitted, the bowel prep will be done, IV antibiotics will be done as the treatment of this possible infection. Seem number is noted to be 12. With an MVC flow as an MHC, fossil lump. Total count is 406, coags normal. SMA 18 normal. CAT scan is reviewed there is clearly a mass in the sigmoid, there is inflammation around it and some fluid posteriorly. There is also a clear connection between the mass and the thick walled urinary bladder. There is some gas in the wall consistent with an abscess and/or fistula. Plan will be , sigmoid colectomy with the help of Dr. Stark. I spoke to Dr. Stark and texted Dr. Cespedes. I will follow peripherally until returns. He comes back which will be Saturday afternoon or evening. Thank you. AUDREY
--- NOTE | 2016-11-01 08:38 | OP ---
Dr. Gera Stark Date: 10/11/16 Urologic portion of the operative report Pre op diagnosis is: Colon cancer, possible colovesical fisula Post op diagnosis is: Colon cancer, possible colovesical fisula Procedure is a cystoscopy with the insertion of bilateral ureteral catheters, the recurred anesthesia was general. Specimens: there were none Complications: there were none Operative findings: Informed consents was obtained, Pt was positioned on the operative table Anesthesia was administered, Pt was placed in a dorsal position. Pt was drapped and prepped in the usual sterile fashion. A ____scope was placed in the patient's urethra in advanced proxy under direct vision. Total bladder was entered. A full survey of the bladder was then performed, which revealed no stones or FB. There was a ragged area at the left bladder dome with inflammation. There was no obvious fisulas track noted. At this point advanced through the cystoscope, one was guided through the left ureteral orifice, one was guided through the right urethral orifice, both advanced approximately under direct vision until they were in the appropriate depth. Both catheters went in easily with no evidence of obstruction. At this point the urologic portion of the procedure was completed, the bladder was drained, the cystoscope was removed, and a lyman catheter was passed and the ureteral catheter was secured to the lyman catheter. The pt was left in the operative room under general anesthesia in order to undergo a colon resection by Dr. Mik Cespedes of general surgery. I discussed with Dr. Cespedes if bladder dissection was needed I will be available. He will call me if needed, at that point after the sigmoid mass has been mobilized. Please refer to Dr. Cespedes operative report for the remainder of the patient's operative report. Second Portion of Operative Report: I was asked to scrub back in to inspect the bladder after the tumor has been removed by Dr. Cespedes at General Surgery. Upon scrubbing bag into the case, the bladder was tanked filled with defined blue, and fully distended. There was a small area where the tumor had been dissected out from the bladder which appear to be weaken. There were no leaks noted. At this point I was able to inbricate the area with two stitches of 2-0 Vicryl to strengthen the bladder wall. The bladder was deflated and inflated again, there was no leakage noted. At this point I scrubbed out and Dr. Cespedes continued with the surgical resonance to finish the colon resection and closure. I discussed postoperative care with Dr. Cespedes and the resident, the lyman catheter will be left indwelling while the patient is recovering from surgery. We were planning a voiding trial after approximately one week to allow adequate bladder healing. MD AUDREY Solis
== END 2016-10-15 15:19 | disposition home or self-care (01) | DRG 329 ==
LOC: ED 09:48 → ERH 13:42 → 3RNO 15:38 → OBSVTOIN 10-09 11:57 → 3RSO 10-09 18:56
PROVIDERS: ADMIT Student in an Organized Health Care Education/Training Program; ATTEND Student in an Organized Health Care Education/Training Program
PROC: 0TQB0ZZ Repair Bladder, Open Approach (ICD-10-PCS; 2016-10-11)
PROC: 0T778DZ Dilation of Left Ureter with Intraluminal Device, Via Natural or Artificial Opening Endoscopic (ICD-10-PCS; 2016-10-11)
PROC: 0T768DZ Dilation of Right Ureter with Intraluminal Device, Via Natural or Artificial Opening Endoscopic (ICD-10-PCS; 2016-10-11)
PROC: 0DTN0ZZ Resection of Sigmoid Colon, Open Approach (ICD-10-PCS; principal; 2016-10-11 10:30)
PROC: 0W9J0ZZ Drainage of Pelvic Cavity, Open Approach (ICD-10-PCS; 2016-10-11 10:30)
DX: C19 Malignant neoplasm of rectosigmoid junction (principal); K65.1 Peritoneal abscess; N32.1 Vesicointestinal fistula; K57.92 Diverticulitis of intestine, part unspecified, without perforation or abscess without bleeding; I10 Essential (primary) hypertension; B96.20 Unspecified Escherichia coli [E. coli] as the cause of diseases classified elsewhere; D50.9 Iron deficiency anemia, unspecified; E66.9 Obesity, unspecified; Z68.39 Body mass index [BMI] 39.0-39.9, adult

== ENCOUNTER 2016-12-13 11:23 | Day surgery (SDC) | payer BC ==
[2016-12-13 11:43] VITALS: BMI 29.0
--- NOTE | 2016-12-13 11:57 | ED PDOC ---
Arrival/HPI - General Time Seen by Provider: 12/13/16 11:41 Historian: Patient - History of Present Illness Narrative History of Present Illness (Text): 12/13/16 11:54 A 51 year old male, whose past medical history includes colon caner on chemotherapy, was sent into the emergency department by Dr. Ma for a port replacement. Patient notes mild discomfort in the area surrounding his port. Patient denies any fever, chills, nausea, vomiting, abdominal pain, chest pain, shortness of breath, cough or any other complaints. Vascular/Interventional radiologist: Dr. Johnson Ma Time/Duration: Prior to Arrival Symptom Course: Unchanged Quality: Other Context: Other Past Medical History - Provider Review Nursing Documentation Reviewed: Yes - Infectious Disease Hx of Infectious Diseases: None - Hematological/Oncological Hx Blood Transfusions: No Hx Blood Transfusion Reaction: No - Musculoskeletal/Rheumatological Hx Falls: No - Gastrointestinal Other/Comment: pet scan 10/04/16+ colon tumor - Genitourinary/Gynecological Hx Urinary Tract Infection: Yes (was on cipro 7 days finished 10/05/16) - Psychiatric Hx Substance Use: No - Surgical History Other/Comment: umbilical hernia sx surgery 15 yrs ago - Anesthesia Hx Anesthesia Reactions: No Hx Malignant Hyperthermia: No Family/Social History - Physician Review Nursing Documentation Reviewed: Yes Family/Social History: No Known Family HX Smoking Status: Never Smoked Hx Alcohol Use: No Hx Substance Use: No Allergies/Home Meds Allergies/Adverse Reactions: Allergies tree nut Allergy (Verified 12/13/16 11:57) ANAPHYLAXIS Home Medications: Home Meds Medication Instructions Recorded Confirmed Alprazolam [Xanax] 0.25 mg PO Q6 PRN 12/13/16 12/13/16 valACYclovir [Valtrex] 500 mg PO DAILY 12/13/16 12/13/16 Review of Systems - Physician Review All systems were reviewed & negative as marked: Yes - Review of Systems Constitutional: absent: Fevers, Night Sweats Respiratory: absent: SOB, Cough Cardiovascular: absent: Chest Pain Gastrointestinal: absent: Abdominal Pain, Nausea, Vomiting Musculoskeletal: Other (Discomfort in area surrounding port ) Physical Exam Vital Signs Reviewed: Yes Vital Signs Temp Pulse Resp BP Pulse Ox 12/13/16 16:04 98 12/13/16 15:00 98.8 F 77 18 126/78 98 12/13/16 14:38 99.0 F 75 16 169/83 H 97 12/13/16 14:23 99.0 F 79 15 144/90 97 12/13/16 11:49 98.9 F 90 16 139/94 H 96 Temperature: Afebrile Blood Pressure: Hypertensive Pulse: Regular Respiratory Rate: Normal Appearance: Positive for: Well-Appearing, Non-Toxic, Comfortable Pain Distress: None Mental Status: Positive for: Alert and Oriented X 3 - Systems Exam Head: Present: Atraumatic, Normocephalic Pupils: Present: PERRL Extroacular Muscles: Present: EOMI Conjunctiva: Present: Normal Mouth: Present: Moist Mucous Membranes Neck: Present: Normal Range of Motion Respiratory/Chest: Present: Clear to Auscultation, Good Air Exchange, Other ( Port on right chest wall area). No: Respiratory Distress, Accessory Muscle Use Cardiovascular: Present: Regular Rate and Rhythm, Normal S1, S2. No: Murmurs Abdomen: Present: Normal Bowel Sounds. No: Tenderness, Distention, Peritoneal Signs Back: Present: Normal Inspection Upper Extremity: Present: Normal Inspection. No: Cyanosis, Edema Lower Extremity: Present: Normal Inspection. No: Edema Neurological: Present: GCS=15, CN II-XII Intact, Speech Normal Skin: Present: Warm, Dry, Normal Color. No: Rashes Psychiatric: Present: Alert, Oriented x 3, Normal Insight, Normal Concentration Medical Decision Making ED Course and Treatment: 12/13/16 11:54 Impression: A 51 year old male sent in for a port replacement. Plan: -- Labs -- IV fluids -- Reassess and disposition Progress Notes: - Lab Interpretations Lab Results: 12/13/16 12:00 12/13/16 12:00 Lab Results 12/13/16 12:00: Blood Type A NEGATIVE, Antibody Screen Negative, BBK History Checked Patient has bt 12/13/16 12:00: Sodium 142, Potassium 4.1, Chloride 107, Carbon Dioxide 23, Anion Gap 16, BUN 14, Creatinine 0.8, Est GFR ( Amer) > 60, Est GFR (Non- Af Amer) > 60, Random Glucose 101, Calcium 9.5, Total Bilirubin 1.0, AST 29, ALT 16, Alkaline Phosphatase 75, Total Protein 8.0, Albumin 4.4, Globulin 3.5, Albumin/Globulin Ratio 1.3 12/13/16 12:00: PT 10.4, INR 0.96, APTT 31.2 H 12/13/16 12:00: WBC 8.1, RBC 5.42, Hgb 13.9 L, Hct 43.4, MCV 80.1, MCH 25.6, MCHC 32.0, RDW 19.4 H, Plt Count 290, MPV 9.3, Gran % 61.3, Lymph % (Auto) 25.3 , [place] % (Auto) 11.2 H, Eos % (Auto) 1.7, Baso % (Auto) 0.5, Gran # 4.95, Lymph # 2.1, [place] # 0.9 H, Eos # 0.1, Baso # 0.04 I have reviewed the lab results: Yes - RAD Interpretation Radiology Orders: 12/13/16 12:41 CAR PERIPHERAL VASCULAR ORDER [VASCULAR] Stat - Medication Orders Current Medication Orders: Acetaminophen (Tylenol 325mg Tab) 650 mg PO Q4 PRN PRN Reason: Pain, Mild (1-3) Sodium Chloride (Sodium Chloride 0.45%) 1,000 mls @ 100 mls/hr IV .Q10H ROCAEL Last Admin: 12/13/16 12:11 Dose: 100 mls/hr Oxycodone/Acetaminophen (Percocet 5/325 Mg Tab) 1 tab PO Q6H PRN PRN Reason: Pain, moderate (4-7) Stop: 12/16/16 14:21 Last Admin: 12/13/16 14:40 Dose: 1 tab Discontinued Medications Cefazolin Sodium (Ancef) Confirm Administered Dose 1 gm .ROUTE .STK-MED ONE Stop: 12/13/16 13:10 Last Admin: 12/13/16 13:25 Dose: 1 gm Comments: Administered IV as per Dr. Ma. Fentanyl (Fentanyl) Confirm Administered Dose 100 mcg .ROUTE .STK-MED ONE Stop: 12/13/16 13:10 Last Admin: 12/13/16 13:27 Dose: 100 mcg Comments: 50mcg administered IV by Dr. Ma at 1327. 50mcg Administered IV as per Dr. Ma at 1333. Fentanyl (Fentanyl) Confirm Administered Dose 100 mcg .ROUTE .STK-MED ONE Stop: 12/13/16 13:54 Last Admin: 12/13/16 13:53 Dose: 50 mcg Comments: Administered IV as per Dr. Ma. Heparin Sodium (Porcine) (Heparin 1000 Units/500 Ml Ns) Confirm Administered Dose 1,000 mls @ ud IV .STK-MED ONE Stop: 12/13/16 13:10 Lidocaine HCl (Lidocaine 2% 20ml Vial) Confirm Administered Dose 40 ml .ROUTE .STK-MED ONE Stop: 12/13/16 13:09 Last Admin: 12/13/16 13:38 Dose: 30 ml Comments: 10 ml administered SC by Dr. Ma at 1338. 10 ml administered SC by Dr. Ma at 1341. 10 ml administered SC by Dr. Ma at 1356. Midazolam HCl (Versed Inj) Confirm Administered Dose 2 mg .ROUTE .STK-MED ONE Stop: 12/13/16 13:10 Last Admin: 12/13/16 13:27 Dose: 2 mg Comments: 1.5mg administered IV by Dr. Ma at 1327. 0.5mg Administered IV as per Dr. Ma. Midazolam HCl (Versed Inj) Confirm Administered Dose 2 mg .ROUTE .STK-MED ONE Stop: 12/13/16 13:33 Last Admin: 12/13/16 13:36 Dose: 1.5 mg Comments: 1 mg Administered IV as per Dr. Ma at 1336. 0.5mg Administered IV as per Dr. Ma at 1352. Oxycodone/Acetaminophen (Percocet 5/325 Mg Tab) Confirm Administered Dose 1 tab .ROUTE .STK-MED ONE Stop: 12/13/16 14:42 - Scribe Statement The provider has reviewed the documentation as recorded by the Bianca Angel Provider Scribe Attestation: All medical record entries made by the Bianca were at my direction and personally dictated by me. I have reviewed the chart and agree that the record accurately reflects my personal performance of the history, physical exam, medical decision making, and the department course for this patient. I have also personally directed, reviewed, and agree with the discharge instructions and disposition. Disposition/Present on Arrival - Present on Arrival Any Indicators Present on Arrival: No History of DVT/PE: No History of Uncontrolled Diabetes: No Urinary Catheter: No History Surgical Site Infection Following: None - Disposition Have Diagnosis and Disposition been Completed?: Yes Diagnosis: Port catheter in place Disposition: HOSPITALIZED Disposition Time: 11:40 Condition: STABLE
[2016-12-13] MEDS ORDERED: Sodium Chloride 0.45% 1,000 ML IV SCH (12:00)
[2016-12-13 12:25] LABS: BASO # 0.04 K/mm3 (0.0-2.0); BASO % 0.5 % (0.0-3.0); EOS # 0.1 (0.0-0.7); EOS % 1.7 % (1.5-5.0); GRAN # 4.95 (1.4-6.5); GRAN % 61.3 % (50.0-68.0); HEMATOCRIT 43.4 % (42.0-52.0); LYMPH # 2.1 (1.2-3.4); LYMPH % 25.3 % (22.0-35.0); MEAN CELL VOLUME 80.1 fl (80.0-105.0); MEAN CORPUSCULAR HEMOGLOBIN 25.6 pg (25.0-35.0); MEAN PLATELET VOLUME 9.3 fl (7.0-11.0); MONO # 0.9 (0.1-0.6); MONO % 11.2 % (1.0-6.0); RED CELL DISTRIBUTION WIDTH 19.4 % (11.5-14.5); WHITE BLOOD COUNT 8.1 10^3/ul (4.5-11.0)
[2016-12-13 12:27] LABS: ALB/GLOB RATIO 1.3 (1.1-1.8); ALKALINE PHOSPHATASE 75 U/L (38-126); ALT/SGPT 16 U/L (7-56); AST/SGOT 29 U/L (17-59); BLOOD UREA NITROGEN 14 mg/dL (7-21); CALCIUM 9.5 mg/dL (8.4-10.5); CARBON DIOXIDE 23 mmol/L (21-33); CHLORIDE 107 mmol/L (98-107); GFR AFRICAN-AMERICAN > 60; GLUCOSE,RANDOM 101 mg/dL (70-110); POTASSIUM 4.1 mmol/L (3.6-5.0); SODIUM 142 mmol/L (132-148)
[2016-12-13 12:31] LABS: INR 0.96 (0.93-1.08); PARTIAL THROMBOPLASTIN TIME 31.2 Seconds (23.7-30.8)
[2016-12-13] MEDS ORDERED: Lidocaine 2% Inj (20ml) ONE (13:08)
[2016-12-13] MEDS ORDERED: Midazolam 2 MG/2 ML VIAL ONE ×2 (13:09→13:32)
[2016-12-13] MEDS ORDERED: Oxycodone/Acetaminophen 5/325 mg Tab PO PRN (14:20)
[2016-12-13] MEDS ORDERED: Oxycodone/Acetaminophen 5/325 mg Tab ONE (14:41)
[2016-12-13 15:33] VITALS: BP 126/78; PULSE 77; RESP 18; TEMP 98.8; O2SAT 98
--- NOTE | 2016-12-13 19:01 | VASCULAR ---
PROCEDURE: 1. Ultrasound and fluoroscopically placed right IJ tunneled venous port 2. Removal of patient's malfunctioning right IJ tunneled venous port CLINICAL HISTORY: Colon CA. Chemotherapy. Malfunctioning right IJ port. Needs new port. PHYSICIAN(S): Johnson Barillas M.D. TECHNIQUE: The relative risks and indications of the procedure were explained to the patient and consent obtained. The patient was placed supine on the arteriogram table and the right neck and chest prepped and draped usual sterile fashion. Conscious sedation and monitoring were provided throughout the procedure by a nurse. Antibiotics were given prior to the procedure. 1% Xylocaine was used to anesthetize the skin and soft tissues at the port. A 3 cm incision was made. The port was bluntly dissected and removed. The catheter was removed under fluoroscopic guidance. No retained catheter fragments were seen. The pocket was lavaged with normal saline. Next, the right internal jugular vein was punctured under ultrasound guidance with a micropuncture set. 0.035 guidewire was advanced in the IVC. A peel-away sheath was placed. The 8 [place] catheter was positioned at the SVC/RA junction. The catheter was tunneled to the previously developed pocket below the right clavicle. The port was then attached and placed in the pocket. The pocket was closed in 2 layers. The patient tolerated the procedure well. IMPRESSION: 1. Ultrasound and fluoroscopically placed tunneled right IJ venous port 2. Removal of the patient's malfunctioning tunneled right IJ port.
== END 2016-12-13 16:06 | disposition home or self-care (01) ==
LOC: ED 11:23 → SDSVAS 13:30
PROVIDERS: ATTEND Radiology Vascular & Interventional Radiology
DX: T82.514A Breakdown (mechanical) of infusion catheter, initial encounter (principal); Y83.8 Other surgical procedures as the cause of abnormal reaction of the patient, or of later complication, without mention of misadventure at the time of the procedure; C18.9 Malignant neoplasm of colon, unspecified
CPT/HCPCS: 36561; 36590; 77001; 80053; 85025; 85610; 85730; 86850; 86900; 99152; 99153; 99283; C1769; C1788; J0690; J1644; J2250; J3010; J7030

== ENCOUNTER 2018-03-26 10:58 | Emergency (ER) | payer BC, OTHER ==
[2018-03-26 11:00] VITALS: BMI 38.7
[2018-03-26] MEDS ORDERED: Sodium Chloride 0.9% 1,000 ML IV STA (11:18)
[2018-03-26 11:50] LABS: BASO # 0.06 K/mm3 (0.0-2.0); BASO % 0.7 % (0.0-3.0); EOS # 0.3 (0.0-0.7); EOS % 3.4 % (1.5-5.0); GRAN # 5.07 (1.4-6.5); GRAN % 55.5 % (50.0-68.0); HEMOGLOBIN 16.1 g/dL (14.0-18.0); LYMPH % 33.1 % (22.0-35.0); MEAN CELL VOLUME 84.4 fl (80.0-105.0); MEAN CORPUSCULAR HEMOGLOBIN 27.3 pg (25.0-35.0); MEAN CORPUSCULAR HGB CONC 32.4 g/dl (31.0-37.0); MEAN PLATELET VOLUME 9.3 fl (7.0-11.0); MONO # 0.7 (0.1-0.6); MONO % 7.3 % (1.0-6.0); RBC 5.89 10^6/uL (3.5-6.1); RED CELL DISTRIBUTION WIDTH 14.5 % (11.5-14.5); WHITE BLOOD COUNT 9.1 10^3/uL (4.5-11.0)
[2018-03-26 11:59] LABS: INR 0.96; PARTIAL THROMBOPLASTIN TIME 33.8 Seconds (25.1-36.5)
[2018-03-26 12:04] LABS: ALB/GLOB RATIO 1.4 (1.1-1.8); ALBUMIN 4.8 g/dL (3.0-4.8); ALT/SGPT 54 U/L (7-56); AST/SGOT 39 U/L (17-59); BLOOD UREA NITROGEN 16 mg/dL (7-21); CALCIUM 9.6 mg/dL (8.4-10.5); GFR NON-AFRICAN AMERICAN > 60
--- NOTE | 2018-03-26 12:20 | ED PDOC ---
Arrival/HPI - General Chief Complaint: Abdominal Pain Time Seen by Provider: 03/26/18 11:00 Historian: Patient - History of Present Illness Narrative History of Present Illness (Text): 03/26/18 12:16 52yo male with pmhx of colon CA s/p colectomy and radiation on remission for a year now, referred to ED by Dr. Barillas for RLQ abdominal pain x 2days. Patient describes the pain as "irritation and intermittent. Denies nausea, vomiting, diarrhea, constipation, fever, chills, chest pain, SOB, diaphoresis, back pain, melena, hematemesis, hematuria, any other complaint. Past Medical History - Provider Review Nursing Documentation Reviewed: Yes - Infectious Disease Hx of Infectious Diseases: None - Hematological/Oncological Hx Blood Transfusions: No Hx Blood Transfusion Reaction: No Hx Cancer: Yes (Colon CA) - Musculoskeletal/Rheumatological Hx Falls: No - Gastrointestinal Other/Comment: pet scan 10/04/16+ colon tumor - Genitourinary/Gynecological Hx Urinary Tract Infection: Yes - Psychiatric Hx Substance Use: No - Surgical History Other/Comment: umbilical hernia sx surgery 15 yrs ago. R chest port - Anesthesia Hx Anesthesia: Yes Hx Anesthesia Reactions: No Hx Malignant Hyperthermia: No Family/Social History - Physician Review Nursing Documentation Reviewed: Yes Family/Social History: Unknown Family HX Smoking Status: Never Smoked Hx Alcohol Use: No Hx Substance Use: No Allergies/Home Meds Allergies/Adverse Reactions: Allergies tree nut Allergy (Verified 12/13/16 11:57) ANAPHYLAXIS Home Medications: Home Meds Medication Instructions Recorded Confirmed Alprazolam [Xanax] 0.25 mg PO Q6 PRN 12/13/16 12/13/16 valACYclovir [Valtrex] 500 mg PO DAILY 12/13/16 12/13/16 Review of Systems - Physician Review All systems were reviewed & negative as marked: Yes - Review of Systems Constitutional: Normal Eyes: Normal ENT: Normal Respiratory: Normal Cardiovascular: Normal Gastrointestinal: Abdominal Pain. absent: Stool Changes, Constipation, Diarrhea, Nausea, Vomiting, Hematochezia, Hematemesis Genitourinary Male: Normal Musculoskeletal: Normal Skin: Normal Neurological: Normal Endocrine: Normal Hemo/Lymphatic: Normal Psychiatric: Normal Physical Exam Vital Signs Reviewed: Yes Vital Signs Temp Pulse Resp BP Pulse Ox 03/26/18 11:01 97.7 F 88 18 151/86 H 95 Temperature: Afebrile Blood Pressure: Normal Pulse: Regular Respiratory Rate: Normal Appearance: Positive for: Well-Appearing, Non-Toxic, Comfortable Pain Distress: None Mental Status: Positive for: Alert and Oriented X 3 - Systems Exam Head: Present: Atraumatic, Normocephalic Pupils: Present: PERRL Extroacular Muscles: Present: EOMI Conjunctiva: Present: Normal Mouth: Present: Moist Mucous Membranes Neck: Present: Normal Range of Motion Respiratory/Chest: Present: Clear to Auscultation, Good Air Exchange. No: Respiratory Distress, Accessory Muscle Use Cardiovascular: Present: Regular Rate and Rhythm, Normal S1, S2. No: Murmurs Abdomen: Present: Tenderness (RLQ), Normal Bowel Sounds, Other (Soft). No: Distention, Peritoneal Signs, Rebound, McBurney's Point Tender, Rovsing's Sign Present Back: Present: Normal Inspection Upper Extremity: Present: Normal Inspection. No: Cyanosis, Edema Lower Extremity: Present: Normal Inspection. No: Edema Neurological: Present: GCS=15, CN II-XII Intact, Speech Normal Skin: Present: Warm, Dry, Normal Color. No: Rashes Psychiatric: Present: Alert, Oriented x 3, Normal Insight, Normal Concentration Medical Decision Making ED Course and Treatment: 03/26/18 14:41 PT in ED for RLQ pain x 2days. Case was DW Dr. Barillas who referred pt to the ED. He reprots that he plans to do a CT guided biopsy. Recommends lab, fluid, clear liquid. Labs 1L NS @ 75 Lab was unremarkable. Pt was admitted to [facility] to Dr. Barillas service. - Lab Interpretations Lab Results: 03/26/18 11:40 03/26/18 11:40 Lab Results 03/26/18 11:40: Sodium 142, Potassium 4.5, Chloride 107, Carbon Dioxide 25, Anion Gap 14, BUN 16, Creatinine 0.8, Est GFR ( Amer) > 60, Est GFR (Non- Af Amer) > 60, Random Glucose 102, Calcium 9.6, Total Bilirubin 0.7, AST 39, ALT 54, Alkaline Phosphatase 70, Total Protein 8.2, Albumin 4.8, Globulin 3.4, Albumin/Globulin Ratio 1.4 03/26/18 11:40: PT 11.0, INR 0.96, APTT 33.8 03/26/18 11:40: WBC 9.1, RBC 5.89, Hgb 16.1 D, Hct 49.7, MCV 84.4 D, MCH 27.3, MCHC 32.4, RDW 14.5, Plt Count 281, MPV 9.3, Gran % 55.5, Lymph % (Auto) 33.1, [place] % (Auto) 7.3 H, Eos % (Auto) 3.4, Baso % (Auto) 0.7, Gran # 5.07, Lymph # (Auto) 3.0, [place] # (Auto) 0.7 H, Eos # (Auto) 0.3, Baso # (Auto) 0.06 - RAD Interpretation Radiology Orders: 03/26/18 11:18 ABD & PELVIS IV CONTRAST ONLY [CT] Stat - Medication Orders Current Medication Orders: Sodium Chloride (Sodium Chloride 0.9%) 1,000 mls @ 75 mls/hr IV .[id number] STA Stop: 03/27/18 00:37 Last Admin: 03/26/18 11:42 Dose: 75 mls/hr eMAR Start Stop Document 03/26/18 11:42 OCS (Rec: 03/26/18 11:42 OCS [id number]) Intravenous Solution Start Date 03/26/18 Start Time 11:42 Disposition/Present on Arrival - Present on Arrival Any Indicators Present on Arrival: No History of DVT/PE: No History of Uncontrolled Diabetes: No Urinary Catheter: No History of Decub. Ulcer: No History Surgical Site Infection Following: None - Disposition Have Diagnosis and Disposition been Completed?: Yes Diagnosis: Abdominal pain Disposition: HOSPITALIZED Disposition Time: 12:35 Patient Problems: Current Active Problems Problem Status Onset Abdominal pain Acute Condition: FAIR Forms: Space Apart (Faroese)
[2018-03-26] MEDS ORDERED: Lidocaine 1% Inj (20ml) ONE (14:06)
[2018-03-26] MEDS ORDERED: Midazolam 2 MG/2 ML VIAL ONE ×2 (14:07→14:16)
[2018-03-26] MEDS ORDERED: Midazolam 2 MG/2 ML VIAL IVP STA (14:09)
--- NOTE | 2018-03-26 14:37 | CT ---
Date of service: 03/26/2018 PROCEDURE: CT Abdomen and Pelvis with contrast HISTORY: abdominal pain. Wait until liver bx with Dr Tammie Almaraz COMPARISON: 11/08/2017 TECHNIQUE: Contrast dose: Radiation dose: Total exam DLP = 1073.09 mGy-cm. This CT exam was performed using one or more of the following dose reduction techniques: Automated exposure control, adjustment of the mA and/or kV according to patient size, and/or use of iterative reconstruction technique. FINDINGS: LOWER THORAX: Unremarkable. LIVER: 2.8 centimeter hypodense mass in the medial segment of the left hepatic lobe peripherally as well as a 2.4 centimeter mass in the right hepatic lobe adjacent to the inferior vena cava. These are new since prior examination compatible with metastases. GALLBLADDER AND BILE DUCTS: Unremarkable. PANCREAS: Unremarkable. No gross lesion or ductal dilatation. SPLEEN: Unremarkable. ADRENALS: Unremarkable. No mass. KIDNEYS AND URETERS: Unremarkable. No hydronephrosis. No solid mass. VASCULATURE: Unremarkable. No aortic aneurysm. No aortic atherosclerotic calcification or mural plaque present. BOWEL: Unremarkable. No obstruction. No gross mural thickening. APPENDIX: Normal appendix. PERITONEUM: Unremarkable. No free fluid. No free air. LYMPH NODES: Unremarkable. No enlarged lymph nodes. BLADDER: Unremarkable. REPRODUCTIVE: Unremarkable. BONES: No acute fracture. OTHER FINDINGS: None. IMPRESSION: 2.8 centimeter hypodense mass in the medial segment of the left hepatic lobe peripherally as well as a 2.4 centimeter mass in the right hepatic lobe adjacent to the inferior vena cava. These are new since prior examination compatible with metastases.
[2018-03-26] MEDS ORDERED: Sodium Chloride 0.45% 1,000 ML IV SCH (14:45)
[2018-03-26 15:35] VITALS: RESP 18; TEMP 97.5
--- NOTE | 2018-03-26 15:56 | CT ---
PROCEDURE: CT guided liver biopsy. HISTORY: Colon CA. Two new liver lesions on PET-CT. Suspicious for metastatic disease. Needs biopsy. PHYSICIAN(S): Johnson Barillas MD. TECHNIQUE: The relative risks and indications of the procedure were explained to the patient and consent obtained. Initially, a contrast enhanced scan of the abdomen was performed. Conscious sedation monitoring were provided throughout the procedure by a nurse. The 3.5 cm lesion in the superior aspect of the medial segment left lobe was selected for biopsy. The lesion was difficult to identify on the biopsy images. A anterior oblique approach was selected and the area prepped and draped in the usual sterile fashion. 1% Xylocaine was used to anesthetize the skin and soft tissues. A 17-gauge guiding needle was advanced into the medial segment of the left lobe of the liver superiorly. Its position was confirmed with CT. Using coaxial technique, multiple core biopsies were obtained. The postprocedure images show no evidence of significant hemorrhage. IMPRESSION: 1. CT-guided liver biopsy as described above.
[2018-03-26 16:12] VITALS: BP 125/92; PULSE 79; O2SAT 99
== END 2018-03-26 13:49 | disposition short-term general hospital (02) ==
LOC: ED 10:58
DX: R10.31 Right lower quadrant pain (principal); Z85.038 Personal history of other malignant neoplasm of large intestine
CPT/HCPCS: 47000; 74177; 77012; 80053; 85025; 85610; 85730; 88307; 96374; 96375; 99285; J2250; J3010; J7030; Q9967